=== PATIENT | female | born 1990 | race African-American/Black ===

== ENCOUNTER 2018-01-06 18:31 | Emergency (ER) | payer OTHER ==
[2018-01-06 20:53] LABS: KETONE, URINE AUTO RFX NEGATIVE (NEGATIVE); NITRITE, URINE AUTO RFX NEGATIVE (NEGATIVE); RBC, URINE AUTO RFX 4 /HPF (0-3); SPECIFIC GRAVITY UR AUTO RFX 1.014 (1.002-1.035); SQUAM EPITHELIAL CELL UR AURFX 3 /HPF (0-6); WBC, URINE AUTO RFX 9 /HPF (0-3)
[2018-01-06 21:02] LABS: LEUKOCYTE ESTERASE UR AUTO RFX 1+ (NEGATIVE)
[2018-01-06 21:10] LABS: BASO # 0.1 10^3/uL (0.0-0.2); BASO % 0.8 % (0.0-1.0); EOS # 0.1 10^3/uL (0.0-0.50); HEMATOCRIT 35.2 % (36.0-47.0); HEMOGLOBIN 11.2 g/dl (12.0-15.5); IMMATURE GRANULOCYTE % 0.3 % (0-3.0); LYMPH # 2.1 10^3/uL (1.5-6.5); LYMPH % 15.9 % (24.0-44.0); MEAN CORPUSCULAR HEMOGLOBIN 29.1 pg (27.0-33.0); MEAN CORPUSCULAR HGB CONC 31.8 g/dl (32.0-36.5); MEAN CORPUSCULAR VOLUME 91.4 fl (80.0-96.0); MONO # 1.1 10^3/uL (0.0-0.8); MONO % 8.8 % (0.0-5.0); NEUTROPHILS # 9.5 10^3/uL (1.8-7.7); NEUTROPHILS % 73.2 % (36.0-66.0); PLATELET COUNT, AUTOMATED 547 10^3/uL (150-450); RED BLOOD COUNT 3.85 10^6/uL (4.00-5.40); RED CELL DISTRIBUTION WIDTH 11.1 % (11.5-14.5)
[2018-01-06 21:33] LABS: ALBUMIN 3.1 GM/DL (3.2-5.2); ALKALINE PHOSPHATASE 89 U/L (45-117); ALT/SGPT 29 U/L (12-78); ANION GAP 6 MEQ/L (8-16); AST/SGOT 18 U/L (7-37); BILIRUBIN,DIRECT < 0.1 MG/DL (0.0-0.2); BILIRUBIN,TOTAL 0.3 MG/DL (0.2-1.0); BLOOD UREA NITROGEN 9 MG/DL (7-18); CALCIUM LEVEL 8.2 MG/DL (8.5-10.1); CARBON DIOXIDE LEVEL 28 MEQ/L (21-32); CHLORIDE LEVEL 105 MEQ/L (98-107); CREATININE FOR GFR 1.41 MG/DL (0.55-1.30); GLOMERULAR FILTRATION RATE 57.7 (>60); GLUCOSE, FASTING 78 MG/DL (70-100); LIPASE 63 U/L (73-393); POTASSIUM SERUM 3.9 MEQ/L (3.5-5.1); SODIUM LEVEL 139 MEQ/L (136-145); TOTAL PROTEIN 7.5 GM/DL (6.4-8.2)
[2018-01-06] MEDS ORDERED: ISOVUE-370 76% 100ML VIAL (Q9967) As Ordered (21:54)
[2018-01-06] MEDS: GI COCKTAIL 50ML BTL(HYOSCYAMINE/MAALOX/LIDOCAINE VISCOUS)(1:3:1) PO (22:12)
[2018-01-06] MEDS: PANTOPRAZOLE 40MG INJ (PROTONIX) (C9113) IV (22:13)
[2018-01-06] MEDS: MORPHINE 4 MG/ML 1ML VIAL/SYRINGE (J2270) IV (22:13)
[2018-01-06] MEDS: NS 1,000 ML IV (22:13)
[2018-01-06 22:19] LABS: CONTROL LINE UCG INT CTR LINE PRESENT; URINE PREG TEST NEGATIVE (NEGATIVE)
== END 2018-01-07 00:16 | disposition home or self-care (01) ==
LOC: M ED 01-07 00:16
DX: K29.00 Acute gastritis without bleeding (principal); R50.9 Fever, unspecified; E03.9 Hypothyroidism, unspecified; E05.00 Thyrotoxicosis with diffuse goiter without thyrotoxic crisis or storm; Z88.5 Allergy status to narcotic agent; Z88.6 Allergy status to analgesic agent; Z79.899 Other long term (current) drug therapy
CPT/HCPCS: C9113

== ENCOUNTER 2018-05-27 07:46 | Emergency (ER) | payer OTHER ==
[2018-05-27 08:48] LABS: AMORPHOUS SEDIMENT RFX SMALL (NEGATIVE); KETONE, URINE AUTO RFX NEGATIVE (NEGATIVE); LEUKOCYTE ESTERASE UR AUTO RFX NEGATIVE (NEGATIVE); NITRITE, URINE AUTO RFX NEGATIVE (NEGATIVE); RBC, URINE AUTO RFX 1 /HPF (0-3); SPECIFIC GRAVITY UR AUTO RFX 1.015 (1.002-1.035); SQUAM EPITHELIAL CELL UR AURFX 1 /HPF (0-6); WBC, URINE AUTO RFX 0 /HPF (0-3)
[2018-05-27 09:11] LABS: BASO # 0.1 10^3/uL (0.0-0.2); BASO % 0.5 % (0.0-1.0); EOS # 0.2 10^3/uL (0.0-0.50); EOS % 1.7 % (0.0-3.0); HEMATOCRIT 34.4 % (36.0-47.0); HEMOGLOBIN 10.9 g/dl (12.0-15.5); IMMATURE GRANULOCYTE % 0.4 % (0-3.0); LYMPH # 2.7 10^3/uL (1.5-6.5); LYMPH % 25.8 % (24.0-44.0); MEAN CORPUSCULAR HEMOGLOBIN 31.3 pg (27.0-33.0); MEAN CORPUSCULAR HGB CONC 31.7 g/dl (32.0-36.5); MEAN CORPUSCULAR VOLUME 98.9 fl (80.0-96.0); MONO # 1.1 10^3/uL (0.0-0.8); MONO % 10.2 % (0.0-5.0); NEUTROPHILS # 6.4 10^3/uL (1.8-7.7); NEUTROPHILS % 61.4 % (36.0-66.0); PLATELET COUNT, AUTOMATED 238 10^3/uL (150-450); RED BLOOD COUNT 3.48 10^6/uL (4.00-5.40); RED CELL DISTRIBUTION WIDTH 13.6 % (11.5-14.5); WHITE BLOOD COUNT 10.4 10^3/uL (4.0-10.0)
[2018-05-27 09:25] LABS: ANION GAP 8 MEQ/L (8-16); BLOOD UREA NITROGEN 24 MG/DL (7-18); CALCIUM LEVEL 8.2 MG/DL (8.5-10.1); CARBON DIOXIDE LEVEL 26 MEQ/L (21-32); CHLORIDE LEVEL 106 MEQ/L (98-107); CREATININE FOR GFR 1.78 MG/DL (0.55-1.30); GLOMERULAR FILTRATION RATE 44.1 (>60); GLUCOSE, FASTING 74 MG/DL (70-100); POTASSIUM SERUM 3.4 MEQ/L (3.5-5.1); SODIUM LEVEL 140 MEQ/L (136-145)
[2018-05-27 09:37] LABS: CONTROL LINE HCG INT CTR LINE PRESENT; HCG, SERUM QUALITATIVE NEGATIVE (NEGATIVE)
== END 2018-05-27 10:56 | disposition home or self-care (01) ==
LOC: M ED 07:46
DX: M54.5 Low back pain (principal); D86.89 Sarcoidosis of other sites; N18.3 Chronic kidney disease, stage 3 (moderate); Z79.899 Other long term (current) drug therapy; Z79.890 Hormone replacement therapy; Z88.5 Allergy status to narcotic agent; Z88.8 Allergy status to other drugs, medicaments and biological substances
CPT/HCPCS: 74176

== ENCOUNTER 2018-08-02 22:49 | Emergency (ER) | payer OTHER ==
[~2018-08-02] VITALS: Ht 160 cm; Wt 78.2 kg
[~2018-08-02 22:49] MED LIST: CARA1TAB6 PO; LEVO137T2 PO; LIDO5DIS41 TOP; OMEP40CA2 PO; PRED10TA2 PO; TUMS500C PO
[2018-08-02] MEDS ORDERED: KETOROLAC 30 MG/ML VIAL (J1885) IV ONE (23:15)
[2018-08-02] MEDS ORDERED: NS 1,000 ML IV ONE (23:15)
[2018-08-02] MEDS ORDERED: METOCLOPRAMIDE INJ 10MG/2ML VIAL (J2765) IV ONE (23:15)
[2018-08-02] MEDS ORDERED: diphenhydrAMINE INJ 50MG/ML VIAL (J1200) IV ONE (23:15)
[2018-08-03 00:07] LABS: CALCIUM LEVEL 8.2 MG/DL (8.5-10.1); CREATININE FOR GFR 1.51 MG/DL (0.55-1.30); GLOMERULAR FILTRATION RATE 52.9 (>60)
[2018-08-03 00:43] VITALS: BP 166/89
== END 2018-08-03 00:47 | disposition home or self-care (01) ==
LOC: M ED 22:49
DX: G43.909 Migraine, unspecified, not intractable, without status migrainosus (principal); D86.9 Sarcoidosis, unspecified; Z79.899 Other long term (current) drug therapy; Z88.5 Allergy status to narcotic agent; Z88.8 Allergy status to other drugs, medicaments and biological substances
CPT/HCPCS: 80048; 96374; 96375; 99284; J1200; J1885; J2765

== ENCOUNTER 2018-10-14 17:58 | Emergency (ER) | payer OTHER ==
[~2018-10-14] VITALS: Ht 160 cm; Wt 78.2 kg
[2018-10-14] MEDS ORDERED: ALPR0.25 (18:05)
[2018-10-14] MEDS ORDERED: FLUO10TA2 (18:05)
[2018-10-14] MEDS ORDERED: TRAM100T18 (18:05)
[2018-10-14] MEDS ORDERED: SULFAMETHOXAZOLE-TMP (18:05)
[2018-10-14] MEDS ORDERED: MYCO500T (18:06)
[2018-10-14] MEDS ORDERED: LISI10TA4 (18:06)
[2018-10-14] MEDS ORDERED: NS 500 ML IV ONE (19:45)
--- NOTE | 2018-10-14 20:57 | REP ---
Clinical: Acute right upper quadrant abdominal pain. Technique: Wilson scale ultrasound using curved array transducer. Findings: The liver and pancreas are normal in contour, size, and echogenicity without focal hepatic or pancreatic lesions identified. The gallbladder is normal without gallstones, wall thickening or pericholecystic fluid. No biliary ductal dilatation is appreciated, and the common bile duct measures 3.1 mm diameter. The right kidney is normal in reniform shape without hydronephrosis and measures 10.7 x 5.8 x 5.4 cm. No ascites. Visualized portions of the abdominal aorta normal. Impression: Normal right upper quadrant and gallbladder abdominal ultrasound. Electronically Signed by Merrill Grimes MD 10/14/2018 08:49 P
[2018-10-14 21:12] LABS: BASO # 0.1 10^3/uL (0.0-0.2); BASO % 0.7 % (0.0-1.0); EOS # 0.2 10^3/uL (0.0-0.50); HEMOGLOBIN 13.6 g/dl (12.0-15.5); LYMPH # 1.7 10^3/uL (1.5-6.5); LYMPH % 18.8 % (24.0-44.0); MEAN CORPUSCULAR VOLUME 88.3 fl (80.0-96.0); MONO # 1.1 10^3/uL (0.0-0.8); MONO % 11.9 % (0.0-5.0); NEUTROPHILS # 5.9 10^3/uL (1.8-7.7); NEUTROPHILS % 66.5 % (36.0-66.0); PLATELET COUNT, AUTOMATED 285 10^3/uL (150-450); RED BLOOD COUNT 4.53 10^6/uL (4.00-5.40); WHITE BLOOD COUNT 8.9 10^3/uL (4.0-10.0)
[2018-10-14 21:21] LABS: HCG, SERUM QUALITATIVE NEGATIVE (NEGATIVE)
[2018-10-14 21:39] LABS: BLOOD UREA NITROGEN 16 MG/DL (7-18); CALCIUM LEVEL 8.8 MG/DL (8.5-10.1); CARBON DIOXIDE LEVEL 27 MEQ/L (21-32); CHLORIDE LEVEL 102 MEQ/L (98-107); CREATININE FOR GFR 1.63 MG/DL (0.55-1.30); GLOMERULAR FILTRATION RATE 48.5 (>60); GLUCOSE, FASTING 57 MG/DL (70-100); POTASSIUM SERUM 3.6 MEQ/L (3.5-5.1); SODIUM LEVEL 139 MEQ/L (136-145)
[2018-10-14 21:40] LABS: ALBUMIN 3.7 GM/DL (3.2-5.2); ALT/SGPT 31 U/L (12-78); AMYLASE 110 U/L (25-115); BILIRUBIN,DIRECT 0.1 MG/DL (0.0-0.2); BILIRUBIN,TOTAL 0.6 MG/DL (0.2-1.0); LIPASE 94 U/L (73-393)
[2018-10-14] MEDS ORDERED: KETOROLAC 30 MG/ML VIAL (J1885) IV ONE (21:45)
[2018-10-14] MEDS: GASTROGRAFIN SOLUTION 30ML PO SCH ×2 (22:50→23:15)
--- NOTE | 2018-10-15 01:45 | REPVR ---
EXAM: CT Abdomen and Pelvis Without Contrast EXAM DATE/TIME: 10/14/2018 10:04 PM CLINICAL HISTORY: 28 years old, female; Abdominal pain; Generalized TECHNIQUE: Imaging protocol: Axial computed tomography images of the abdomen and pelvis without contrast. Coronal and sagittal reformatted images were created and reviewed. Radiation optimization: All CT scans at this facility use at least one of these dose optimization techniques: automated exposure control; mA and/or kV adjustment per patient size (includes targeted exams where dose is matched to clinical indication); or iterative reconstruction. COMPARISON: GALLBLADDER US 10/14/2018 8:30:[address] ABD PELVIS W/O CONTRAST 05/27/2018 8:59 AM FINDINGS: Lower thorax: Unremarkable. ABDOMEN: Liver: Unremarkable. No liver lesion is seen. The contour of the liver is smooth. No hepatomegaly is noted. Gallbladder and bile ducts: No calcified gallstones are seen. No gallbladder wall thickening, pericholecystic fluid, or pericholecystic inflammatory changes are identified. No dilation of the intrahepatic or extrahepatic bile ducts is noted. Pancreas: Unremarkable. No ductal dilation. Spleen: Unremarkable. No splenomegaly is noted. Incidental note is made of a small accessory spleen. Adrenals: Normal. No mass. Kidneys and ureters: The kidneys are unremarkable. No renal lesion is identified. No calculi are seen in the kidneys or ureters. There is no hydronephrosis or hydroureter. Stomach and bowel: There is no evidence for a bowel obstruction, diverticulosis, diverticulitis, colitis, pneumatosis intestinalis, intussusception, volvulus, or perforated viscus. Appendix: Normal. No evidence for appendicitis. PELVIS: Bladder: The partially distended urinary bladder is unremarkable. No stones or masses are seen in the bladder. Reproductive: The uterus is anterverted and unremarkable. The ovaries are unremarkable. ABDOMEN and PELVIS: Intraperitoneal space: Normal. No free air. No fluid collection. Bones/joints: There are dystrophic calcifications at the insertion of the left iliocostalis lumborum muscle onto the left iliac crest, which are similar in appearance compared to the prior CT scan on 05/27/2018. The bones are intact. There is no suspicious osteolytic or osteoblastic lesion. Soft tissues: Unremarkable. Incidental note is made of umbilical piercings. Vasculature: No abdominal aortic aneurysm. Lymph nodes: Normal. No enlarged lymph nodes. IMPRESSION: 1. No acute findings in the abdomen or pelvis. 2. No stones in the kidneys, ureters, or urinary bladder. No hydronephrosis or hydroureter. Electronically signed by: Mahin Mackay On 10/15/2018 01:45:23 AM
[2018-10-15] MEDS ORDERED: ZOFR4TAB16 PO (02:00)
[2018-10-15 02:03] VITALS: BP 116/56
[2018-10-15 02:29] LABS: APPEARANCE, URINE CLOUDY (CLEAR); BACTERIA, URINE AUTO 1+ (NEGATIVE); BILIRUBIN, URINE AUTO NEGATIVE (NEGATIVE); BLOOD, URINE BLOOD 1+ (NEGATIVE); COLOR, URINE YELLOW (YELLOW); GLUCOSE, URINE (UA) AUTO NEGATIVE (NEGATIVE); KETONE, URINE AUTO 1+ mg/dL (NEGATIVE); LEUKOCYTE ESTERASE, URINE AUTO NEGATIVE (NEGATIVE); MUCUS, URINE SMALL (NEGATIVE); NITRITE, URINE AUTO NEGATIVE (NEGATIVE); PROTEIN, URINE AUTO 1+ mg/dL (NEGATIVE); RBC, URINE AUTO 10 /HPF (0-3); SPECIFIC GRAVITY URINE AUTO 1.024 (1.002-1.035); SQUAMOUS EPITHELIAL CELL UR AU 12 /HPF (0-6); WBC, URINE AUTO 10 /HPF (0-3)
== END 2018-10-15 02:07 | disposition home or self-care (01) ==
LOC: M ED 17:58
DX: R11.2 Nausea with vomiting, unspecified (principal); R19.7 Diarrhea, unspecified; D86.9 Sarcoidosis, unspecified; N17.8 Other acute kidney failure; I10 Essential (primary) hypertension; E03.9 Hypothyroidism, unspecified; Z88.5 Allergy status to narcotic agent; Z88.6 Allergy status to analgesic agent; Z79.899 Other long term (current) drug therapy; Z79.2 Long term (current) use of antibiotics
CPT/HCPCS: 74176; 76705; 80048; 80076; 81001; 82150; 83690; 84703; 85025; 96374; 99284; J1885; Q9963

== ENCOUNTER → 2018-10-25 | Outpatient (CLI) | payer OTHER ==
[~2018-10-25] MED LIST changes: +ALPR0.25; +FLUO10TA2; +LISI10TA4; +MYCO500T; +PROHANCE 279.3MG/ML 15ML VIAL (A9576) As Ordered ONE; +SULFAMETHOXAZOLE-TMP; +TRAM100T18; +ZOFR4TAB16 PO
--- NOTE | 2018-10-28 08:05 | REP ---
MRI brain and posterior fossa without and with contrast: History: Sudden onset right sided hearing loss. Question neurosarcoidosis. Comparison study: No comparison brain imaging. Technique: Axial and sagittal imaging planes are utilized for T1 and T2-weighted scans. Sequences include spin-echo, fast spin echo, FLAIR, and diffusion weighted sequences. The gadolinium enhancement dose is 7 ml of intravenous ProHance. MRI findings: No bony calvarial lesion is seen. Craniocervical junction and upper cervical cord are normal in appearance. There is no MR evidence of significant paranasal sinus disease. No intraorbital abnormality is seen. The lateral, third, and fourth ventricles are normal in size and position. Wilson-white differentiation pattern is intact above and below the tentorium. There is no evidence of intracranial hemorrhage. No mass, infarction, extra-axial fluid collection or midline shift is seen. No abnormal white matter lesion is seen. The internal auditory canals are normal and symmetric. Seventh and eighth nerves within the are normal in appearance. Vestibular and cochlear apparatus appear normal. There is no evidence of mastoiditis or middle ear fluid by MRI. There is no abnormal gadolinium enhancement intracranially. Impression: Negative the brain and posterior fossa MRI study without and with IV gadolinium. Electronically Signed by Toni Deluna MD 10/28/2018 07:56 A
== END ==
LOC: M RAD 14:22
PROVIDERS: ATTEND Physician Assistant
DX: H91.23 Sudden idiopathic hearing loss, bilateral (principal); H93.11 Tinnitus, right ear
CPT/HCPCS: 70553; A9576

== ENCOUNTER 2018-11-13 11:04 | Emergency (ER) | payer OTHER ==
[~2018-11-13] VITALS: Ht 160 cm; Wt 75.1 kg
[~2018-11-13 11:04] MED LIST changes: -PROHANCE 279.3MG/ML 15ML VIAL (A9576) As Ordered ONE
[2018-11-13] MEDS ORDERED: CELL500T PO (11:21)
[2018-11-13] MEDS ORDERED: NS 1,000 ML IV ONE (12:00)
[2018-11-13 12:27] LABS: BASO # 0.1 10^3/uL (0.0-0.2); BASO % 0.7 % (0.0-1.0); EOS # 0.4 10^3/uL (0.0-0.50); EOS % 3.6 % (0.0-3.0); HEMATOCRIT 38.6 % (36.0-47.0); HEMOGLOBIN 12.8 g/dl (12.0-15.5); LYMPH # 1.6 10^3/uL (1.5-6.5); LYMPH % 16.3 % (24.0-44.0); MEAN CORPUSCULAR HEMOGLOBIN 30.2 pg (27.0-33.0); MEAN CORPUSCULAR HGB CONC 33.2 g/dl (32.0-36.5); MONO # 0.6 10^3/uL (0.0-0.8); MONO % 6.2 % (0.0-5.0); NEUTROPHILS # 7.3 10^3/uL (1.8-7.7); PLATELET COUNT, AUTOMATED 366 10^3/uL (150-450); RED BLOOD COUNT 4.24 10^6/uL (4.00-5.40)
[2018-11-13 12:52] LABS: ALBUMIN 3.8 GM/DL (3.2-5.2); BILIRUBIN,DIRECT 0.2 MG/DL (0.0-0.2); BILIRUBIN,TOTAL 0.8 MG/DL (0.2-1.0); CALCIUM LEVEL 8.8 MG/DL (8.5-10.1); CREATININE FOR GFR 1.63 MG/DL (0.55-1.30); GLOMERULAR FILTRATION RATE 48.5 (>60); POTASSIUM SERUM 4.1 MEQ/L (3.5-5.1); TOTAL PROTEIN 7.6 GM/DL (6.4-8.2)
[2018-11-13] MEDS ORDERED: METOCLOPRAMIDE INJ 10MG/2ML VIAL (J2765) IV ONE (13:00)
[2018-11-13 14:00] VITALS: BP 133/63
== END 2018-11-13 14:12 | disposition home or self-care (01) ==
LOC: M ED 11:04
DX: G43.909 Migraine, unspecified, not intractable, without status migrainosus (principal); N18.3 Chronic kidney disease, stage 3 (moderate); E03.9 Hypothyroidism, unspecified; F41.9 Anxiety disorder, unspecified; F33.9 Major depressive disorder, recurrent, unspecified; Z88.8 Allergy status to other drugs, medicaments and biological substances; Z88.5 Allergy status to narcotic agent; Z79.890 Hormone replacement therapy; Z79.899 Other long term (current) drug therapy
CPT/HCPCS: 80048; 80076; 81001; 81025; 82150; 83690; 85025; 96374; 99284; J2765

== ENCOUNTER 2018-12-23 11:50 | Day surgery (SDC) | payer OTHER ==
[~2018-12-23] VITALS: Ht 160 cm; Wt 74.4 kg
[~2018-12-23 11:50] MED LIST changes: +CELL500T PO; -FLUO10TA2; +FLUO10TA2 PO; +NS 1,000 ML IV ONE; +SYNT150T PO; -TRAM100T18; +TRAM100T18 PO
[2018-12-23] MEDS ORDERED: fentaNYL 100 MCG/2 ML INJECTION (J3010) As Ordered ONE (12:30)
[2018-12-23] MEDS ORDERED: LIDOCAINE 2% INJ 100 MG/5 ML SDV (FOR ANES.) As Ordered ONE (12:30)
[2018-12-23] MEDS ORDERED: PROPOFOL 200 MG/20 ML VIAL As Ordered ONE ×2 (12:30→13:05)
--- NOTE | 2018-12-23 13:08 | ROOR ---
Patient Name: Piper Benavidez Procedure Date: 12/23/2018 12:55 PM Date of : 1990 Age: 28 Room: [facility] Gender: Female Note Status: Finalized Procedure: Upper Endoscopy + Biopsies Indications: Generalized abdominal pain, Nausea with vomiting Providers: Lul Angeles MD Referring MD: RADHA GARCIA MD Requesting Provider: Medicines: Monitored Anesthesia Care Complications: No immediate complications. Procedure: Pre-Anesthesia Assessment: - The heart rate, respiratory rate, oxygen saturations, blood pressure, adequacy of pulmonary ventilation, and response to care were monitored throughout the procedure. The Endoscope was introduced through the mouth, and advanced to the second part of duodenum. The upper GI endoscopy was accomplished without difficulty. The patient tolerated the procedure well. Findings: The Z-line was regular and was found 40 cm from the incisors. No other significant abnormalities were identified in a careful examination of the stomach. The exam of the duodenum was otherwise normal. Biopsies were taken with a cold forceps in the gastric antrum for Helicobacter pylori testing. The exam was otherwise without abnormality. Impression: - Z-line regular, 40 cm from the incisors. - The examination was otherwise normal. - Biopsies were taken with a cold forceps for Helicobacter pylori testing. - The examination was otherwise normal. Recommendation: - Patient has a contact number available for emergencies. The signs and symptoms of potential delayed complications were discussed with the patient. Return to normal activities tomorrow. Written discharge instructions were provided to the patient. - High fiber diet. - Discharge patient to home. - Continue present medications. - Await pathology results. - Telephone GI clinic for pathology results in 1 week. - The findings and recommendations were discussed with the patient's family. Lul Angeles MD Lul Angeles MD 12/23/2018 1:08:10 PM Electronically signed by Lul Angeles MD Number of Addenda: 0 Note Initiated On: 12/23/2018 12:55 PM Estimated Blood Loss: Estimated blood loss: none.
[2018-12-23 13:35] VITALS: BP 120/71
== END 2018-12-23 13:38 | disposition home or self-care (01) ==
LOC: M OPP 11:50
PROVIDERS: ATTEND Internal Medicine Gastroenterology
DX: R10.84 Generalized abdominal pain (principal); R11.2 Nausea with vomiting, unspecified
CPT/HCPCS: 43239; 88305; J3010

== ENCOUNTER → 2019-02-21 | Outpatient (CLI) | payer OTHER ==
[~2019-02-21] MED LIST changes: +LEVO2TA PO; +LIDOCAINE 1% MDV 20ML VIAL As Ordered ONE; -NS 1,000 ML IV ONE; +PROZ10CA7 PO
[2019-02-21 14:47] VITALS: BP 121/80
--- NOTE | 2019-02-21 16:05 | REP ---
Ultrasound-guided left breast biopsy. The procedure was performed by NELY Cuellar, under the direct supervision of Dr. Deluna. The patient has a history of a 2.3 x 1.4 x 0.6 cm left breast mass on a previous ultrasound dated 02/10/2019. The risks and benefits of the procedure were explained to the patient and informed consent was obtained both verbally and written. Directly prior to the start of the procedure, a formal timeout was completed in the procedure room. The left breast mass was localized using ultrasound guidance. The skin was prepped and draped in a sterile fashion. 10 ml of 1% lidocaine was used as a local anesthetic. Using ultrasound guidance a 17/18 gauge coaxial needle biopsy system was inserted and advanced to the mass, and 4 core biopsy samples were obtained. The patient tolerated the procedure well and there were no immediate complications. After the appropriate monitored convalescence the patient was discharged from the department. Reviewed by NELY Anderson 02/21/2019 03:53 P Electronically Signed by Toni Deluna MD 02/21/2019 03:56 P
== END ==
LOC: M IRPRO 12:25
DX: D48.62 Neoplasm of uncertain behavior of left breast (principal)

== ENCOUNTER → 2019-07-24 | Outpatient (CLI) | payer OTHER ==
[~2019-07-24] MED LIST changes: -LIDOCAINE 1% MDV 20ML VIAL As Ordered ONE; -OMEP40CA2 PO; +OMEP40CA97 PO
--- NOTE | 2019-07-24 11:16 | REP ---
DIGITAL DIAGNOSTIC UNILATERAL LEFT BREAST MAMMOGRAPHY WITH CAD, AND FOCUSED LEFT BREAST SONOGRAPHY. HISTORY: New lump palpable in the left breast since mid May. Some tenderness and pain. The patient states this is different than the palpable lump which was biopsied under ultrasound guidance in March 11, 2019 showing benign fibroadenoma histologically. MAMMOGRAPHIC FINDINGS: Implant displaced and implant included views of the left breast are obtained with a skin marker affixed to the skin at the site of palpable lump. These are augmented by magnified focal spot compression views in the craniocaudal, MLO, and true mediolateral projections. These demonstrate the previously noted nodular density in the inferior left breast approximately 6-7 -o'clock position. The skin marker is not clearly related to this nodule. No other breast mass is appreciated. No worrisome skin change is seen. No other mammographic abnormality. The nodule at the approximately 6-o'clock position is unchanged. SONOGRAPHIC FINDINGS: The left breast is scanned through the inferior and medial quadrant. At 6-o'clock position, the previously noted hypoechoic fibroadenoma is seen currently measuring 1.4 x 1.4 x 0.4 cm. It appears smaller sonographically. At the site of the palpable lump today at approximately 8-o'clock position, there is a small lens-shaped fluid collection adjacent to the margin of the augmentation implant. This measures 1.5 x 1.4 x 0.2 cm in greatest diameter and is most compatible with a small fluid collection versus artifact. The implant margins appear smooth here and elsewhere. This finding is of uncertain significance. IMPRESSION: BIRADS 2: BI-RADS/ACR category 2 mammogram. Benign Findings. BIRADS category 2 benign findings. 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 At the site of the new palpable lump, sonography shows a very small fluid collection of doubtful significance adjacent to the implant margin. Clinical followup is advised. This mammogram was interpreted with the aid of an FDA-approved computer-aided detection system. This patient's estimated Tyrer-Cuzick lifetime risk assessment for the breast cancer is 14.7 %. The patient letter being requested is M2 . Electronically Signed by Toni Deluna MD 07/24/2019 02:05 P
== END ==
LOC: M RAD 08:57
PROVIDERS: ATTEND Nurse Practitioner Family
DX: N63.25 Unspecified lump in the left breast, overlapping quadrants (principal)

== ENCOUNTER 2019-09-23 15:23 | Emergency (ER) | payer OTHER ==
[~2019-09-23] VITALS: Ht 160 cm; Wt 73.5 kg
[2019-09-23 16:40] LABS: BASO # 0.1 10^3/uL (0.0-0.2); BASO % 0.7 % (0.0-1.0); EOS # 0.1 10^3/uL (0.0-0.5); EOS % 0.8 % (0.0-3.0); HEMATOCRIT 40.1 % (36.0-47.0); HEMOGLOBIN 12.7 g/dl (12.0-15.5); LYMPH # 1.9 10^3/uL (1.5-5.0); LYMPH % 15.5 % (24.0-44.0); MEAN CORPUSCULAR HGB CONC 31.7 g/dl (32.0-36.5); MEAN CORPUSCULAR VOLUME 94.8 fl (80.0-96.0); MONO # 0.7 10^3/uL (0.0-0.8); MONO % 5.6 % (0.0-5.0); NEUTROPHILS # 9.5 10^3/uL (1.5-8.5); NEUTROPHILS % 77.1 % (36.0-66.0); PLATELET COUNT, AUTOMATED 336 10^3/uL (150-450); RED BLOOD COUNT 4.23 10^6/uL (4.00-5.40); WHITE BLOOD COUNT 12.3 10^3/uL (4.0-10.0)
[2019-09-23 17:04] LABS: HCG, SERUM QUALITATIVE NEGATIVE (NEGATIVE)
[2019-09-23 17:06] LABS: ALBUMIN 3.3 GM/DL (3.2-5.2); ALT/SGPT 22 U/L (12-78); BILIRUBIN,DIRECT < 0.1 MG/DL (0.0-0.2); BILIRUBIN,TOTAL 0.2 MG/DL (0.2-1.0); BLOOD UREA NITROGEN 15 MG/DL (7-18); CALCIUM LEVEL 8.8 MG/DL (8.5-10.1); CARBON DIOXIDE LEVEL 26 MEQ/L (21-32); CHLORIDE LEVEL 108 MEQ/L (98-107); CREATININE FOR GFR 1.73 MG/DL (0.55-1.30); GLOMERULAR FILTRATION RATE 44.9 (>60); GLUCOSE, FASTING 72 MG/DL (70-100); LIPASE 277 U/L (73-393); POTASSIUM SERUM 4.1 MEQ/L (3.5-5.1); SODIUM LEVEL 140 MEQ/L (136-145); TOTAL PROTEIN 6.9 GM/DL (6.4-8.2)
[2019-09-23] MEDS ORDERED: ONDANSETRON 4 MG ORAL DISINTEGRATING TAB (Q0162 PER 1MG) PO ONE ×2 (18:30→23:00)
[2019-09-23] MEDS ORDERED: DICYCLOMINE 10 MG CAP PO ONE (18:30)
[2019-09-23] MEDS ORDERED: NS 1,000 ML IV ONE (20:00)
[2019-09-23] MEDS: GASTROGRAFIN SOLUTION 30ML PO SCH ×2 (20:52→21:22)
--- NOTE | 2019-09-23 21:08 | REP ---
ABDOMINAL SERIES: Supine and erect views of the abdomen demonstrate no free air and no evidence of small bowel obstruction. No dilated bowel loops are seen. There is no fecal impaction. There appear to be a couple of tiny phleboliths in the right lower pelvis. An accompanying view of the chest demonstrates no acute infiltrate. Heart is normal in size and the mediastinal silhouette is unremarkable. IMPRESSION: Negative abdominal series. Electronically Signed by Phillip Wilson MD 09/24/2019 03:53 P
--- NOTE | 2019-09-23 22:38 | REPVR ---
PROCEDURE INFORMATION: Exam: CT Abdomen And Pelvis Without Contrast Exam date and time: 09/23/2019 10:10 PM Age: 29 years old Clinical indication: Abdominal pain; Epigastric; Additional info: Epigastric pain, left side abd pain, nv TECHNIQUE: Imaging protocol: Computed tomography of the abdomen and pelvis without contrast. Radiation optimization: All CT scans at this facility use at least one of these dose optimization techniques: automated exposure control; mA and/or kV adjustment per patient size (includes targeted exams where dose is matched to clinical indication); or iterative reconstruction. Other contrast: Oral, GASTROGRAPHIN ; COMPARISON: CT ABD/PEL W/PO CONTRAST ONLY 10/15/2018 12:05 AM FINDINGS: Liver: Normal. No mass. Gallbladder and bile ducts: Normal. No calcified stones. No ductal dilation. Pancreas: Normal. No ductal dilation. Spleen: Normal. No splenomegaly. Adrenals: Normal. No mass. Kidneys and ureters: Normal. No hydronephrosis. Stomach and bowel: Unremarkable. No obstruction. No mucosal thickening. Appendix: A normal appendix is seen. Intraperitoneal space: Unremarkable. No free air. No significant fluid collection. Vasculature: Unremarkable. No abdominal aortic aneurysm. Lymph nodes: Unremarkable. No enlarged lymph nodes. Bladder: Unremarkable as visualized. Reproductive: Unremarkable as visualized. Bones/joints: Unremarkable. No acute fracture. Soft tissues: Bilateral breast implants. IMPRESSION: Negative CT abdomen/pelvis with little change from 10/15/2018. Electronically signed by: Marco Cortes On 09/23/2019 22:38:04 PM
[2019-09-23] MEDS ORDERED: MAGNESIUM CITRATE 300 ML BTL PO ONE (23:00)
[2019-09-23] MEDS ORDERED: LACT10SO29 PO (23:03)
[2019-09-23] MEDS ORDERED: SIME180C PO (23:03)
[2019-09-23] MEDS ORDERED: ONDA4TAB6 PO (23:03)
[2019-09-23 23:09] VITALS: BP 129/75
== END 2019-09-23 23:16 | disposition home or self-care (01) ==
LOC: M ED 15:23
DX: R10.84 Generalized abdominal pain (principal); E03.9 Hypothyroidism, unspecified; N18.3 Chronic kidney disease, stage 3 (moderate); F41.9 Anxiety disorder, unspecified; F33.9 Major depressive disorder, recurrent, unspecified; Z88.8 Allergy status to other drugs, medicaments and biological substances; Z88.5 Allergy status to narcotic agent; Z79.890 Hormone replacement therapy; Z79.899 Other long term (current) drug therapy
CPT/HCPCS: 74021; 74176; 80048; 80076; 81001; 83690; 84703; 85025; 96360; 99284; Q0162; Q9963

== ENCOUNTER → 2020-02-05 | Outpatient (CLI) | payer OTHER ==
[~2020-02-05] MED LIST changes: +LACT20EL PO; +ONDA4TAB6 PO; +SIME180C PO
--- NOTE | 2020-02-05 23:17 | REP ---
DIAGNOSTIC MAMMOGRAM LEFT BREAST WITH LEFT BREAST ULTRASOUND: HISTORY: Palpable lump 6 o'clock left breast. Family history of breast cancer at age 50 in maternal aunt. [facility] lifetime risk of breast cancer 14.7%. COMPARISON: Mammogram 07/24/2019 and ultrasound 07/24/2019 and 02/10/2019. MLO and CC views of left breast performed. 3D tomosynthesis images are performed. Both routine and implant displaced views are performed. There is a left breast implant in place. It is grossly intact. Mild to moderate scattered fibroglandular densities are seen diffusely throughout the left breast. Volpara breast density is B. Once again, at the 6-o'clock position is a lobulated nodule as seen on prior mammograms, consistent with the previously biopsy proven fibroadenoma. Margins are smooth. No new mass is seen in the left breast, and there are no suspicious clusters of microcalcifications. Real-time sonographic evaluation of 6 o'clock palpable lump left breast corresponds to the site of the known lobulated fibroadenoma. Three separate lobulated soft tissue nodules are seen, as noted on the ultrasound of 02/10/2019. Comparing to that prior study, it appears to be in slightly increased size of the lobulated fibroadenoma. The largest oval solid component of the fibroadenoma measures 1.7 x 0.4 x 1.7 cm. This previously measured 1.3 x 0.4 x 1.4 cm. IMPRESSION: ACR 2, benign findings. Known lobulated fibroadenoma again seen 6 o'clock left breast corresponding to the palpable lump. It has increased in size 3 mm since July. BIRADS 2: BI-RADS/ACR category 2 mammogram. Benign Findings. This mammogram was interpreted with the aid of an FDA-approved computer-aided detection system. The patient states she/he had a clinical breast exam in 01/2020. The patient letter being requested is M2.
== END ==
LOC: M WHC 13:05
PROVIDERS: ATTEND Nurse Practitioner Family
DX: N63.0 Unspecified lump in unspecified breast (principal)
CPT/HCPCS: 76642; 77065; G0279

== ENCOUNTER → 2020-06-19 | Outpatient (CLI) | payer OTHER ==
[~2020-06-19] MED LIST changes: +ARMO90TA; +CYCL-707; +FAMO1TAB11
== END ==
LOC: M LABSMTC 11:11
PROVIDERS: ATTEND Anesthesiology
DX: Z01.812 Encounter for preprocedural laboratory examination (principal); Z20.828 Contact with and (suspected) exposure to other viral communicable diseases

== ENCOUNTER 2020-06-24 08:29 | Day surgery (SDC) | payer OTHER ==
[~2020-06-24] VITALS: Ht 160 cm; Wt 61.0 kg
[~2020-06-24 08:29] MED LIST changes: +LR 1,000 ML IV ONE; +ceFAZolin SOD 1 GM in D5W MINI-BAG PLUS 50 ML IV ONE
[2020-06-24] MEDS ORDERED: BUPIVACAINE LIPOSOME/PF 1.3% 20ML VIAL (13.3MG/ML)(EXPAREL)(C9290 PER1MG) As Ordered ONE (08:56)
[2020-06-24] MEDS ORDERED: BACITRACIN PWD 50,000 UNITS VIAL As Ordered ONE (08:56)
[2020-06-24] MEDS ORDERED: ONDANSETRON 4MG/2ML VIAL As Ordered ONE (09:24)
[2020-06-24] MEDS ORDERED: dexameTHASONE 4 MG/ML 1ML VIAL (J1100 PER 1MG) As Ordered ONE (09:24)
[2020-06-24] MEDS ORDERED: propofoL 200 MG/20 ML VIAL As Ordered ONE ×2 (09:24→13:29)
[2020-06-24] MEDS ORDERED: ROCURONIUM BROMIDE 50 MG/5 ML VIAL As Ordered ONE ×2 (09:24→09:25)
[2020-06-24] MEDS ORDERED: LIDOCAINE 2% 100MG/5ML SDV (FOR ANES.) As Ordered ONE (09:24)
[2020-06-24] MEDS ORDERED: MIDAZOLAM INJ 2MG/2ML VIAL (J2250 PER 1MG) As Ordered ONE (09:25)
[2020-06-24] MEDS ORDERED: fentaNYL 250 MCG/5 ML INJECTION (J3010) As Ordered ONE (09:25)
[2020-06-24] MEDS ORDERED: SCOPOLAMINE 1MG TRANSDERMAL PATCH TOP ONE (10:00)
[2020-06-24] MEDS ORDERED: SCOPOLAMINE 1MG TRANSDERMAL PATCH As Ordered ONE (10:05)
[2020-06-24] MEDS ORDERED: LACRILUBE (AKWA TEARS) OPHTH OINT 3.5 GM As Ordered ONE (10:13)
[2020-06-24] MEDS ORDERED: HYDROmorphone HCL 2 MG/ML 1ML VIAL (J1170) As Ordered ONE (11:16)
[2020-06-24] MEDS ORDERED: SUGAMMADEX SODIUM 500 MG/5 ML VIAL (BRIDION) As Ordered ONE (11:30)
[2020-06-24] MEDS ORDERED: ceFAZolin 1GM VIAL (J0690 PER 500MG) As Ordered ONE (14:03)
[2020-06-24] MEDS: LR 1,000 ML IV SCH (14:54)
--- NOTE | 2020-06-24 14:54 | POST-OPPD ---
Postoperative Procedure Note Date Of Procedure: Jun 24, 2020 PREOPERATIVE DIAGNOSIS: Bilateral breast implants. Painful breasts. POSTOPERATIVE DIAGNOSIS: same FINDINGS: Bilateral breast implants. Left implant rupture. Allergan 450cc gel x2 PROCEDURE: Bilateral breast implant removal, open capsulectomy. Bilateral breast mound reconstruction and mastopexy. SURGEON: Dr Rolon TRAIN CREW MEMBER: Dr Engle ANESTHESIA: General SPECIMENS: Right and left (ruptured) implants. Right and left capsules. ESTIMATED BLOOD LOSS: 100 cc REPLACED: none DRAINS: 10 mm RHONA drains x 2 COMPLICATIONS: none POSTOPERATIVE CONDITION: stable Disct: [id number] RAY ROLON DO Jun 24, 2020 14:54
[2020-06-24] MEDS ORDERED: MORPHINE 4 MG/ML 1ML VIAL/SYRINGE (J2270) IV PRN (15:00)
[2020-06-24] MEDS ORDERED: ceFAZolin SOD 1 GM in D5W MINI-BAG PLUS 50 ML IV SCH (15:00)
[2020-06-24] MEDS ORDERED: ACETAMINOPH W/CODEINE #3 TAB UD PO PRN (15:30)
[2020-06-24] MEDS ORDERED: ONDANSETRON 4MG/2ML VIAL IV PRN (15:30)
[2020-06-24] MEDS ORDERED: HYDROMORPHONE HCL 0.5 MG/ 0.5 ML SYRINGE (J1170 PER 1) IV PRN (15:30)
[2020-06-24] MEDS ORDERED: fentaNYL 100 MCG/2 ML INJECTION (J3010) IV PRN (15:30)
[2020-06-24] MEDS ORDERED: LR 1,000 ML IV SCH (15:30)
[2020-06-24] MEDS ORDERED: METOCLOPRAMIDE INJ 10MG/2ML VIAL (J2765 PER 1) IV PRN (15:30)
[2020-06-24 16:30] VITALS: BP 128/76
[2020-06-24 17:04] VITALS: BP 120/73
[2020-06-24] MEDS: ceFAZolin SOD 1 GM in D5W MINI-BAG PLUS 50 ML IV SCH (17:04)
[2020-06-24] MEDS: traMADol 50 MG TAB PO PRN (17:04)
[2020-06-24 17:59] VITALS: BP 118/74
[2020-06-24 18:55] VITALS: BP 122/78
[2020-06-24 20:00] VITALS: BP 122/76
--- NOTE | 2020-06-24 20:13 | RO ---
OPERATIVE NOTE DATE OF OPERATION: 06/24/2020 PREOPERATIVE DIAGNOSIS: Bilateral breast implants, painful breasts. POSTOPERATIVE DIAGNOSIS: Bilateral breast implants, painful breasts. FINDINGS: Bilateral breast implants, left implant rupture, Allergan 450 mL gel implants found bilaterally. PROCEDURE: Bilateral breast implant removal, open capsulectomy, bilateral breast mound reconstruction and a mastopexy. ATTENDING SURGEON: Dr. Maricarmen Rueda MANAGER OF COMPENSATION: Dr. Engle ANESTHESIA: General. SPECIMEN: Left and right, left is ruptured, right is intact, implants. Right and left capsules. ESTIMATED BLOOD LOSS: 100 mL REPLACEMENT: No replacement. DRAINS: Two 10 mm Deandre-Hernandez drains placed. COMPLICATIONS: None. PROCEDURE: This is a 29-year-old female who was seen complaining of discomfort with her implants since she had them placed. The patient had her implants for three years so she would like to have them removed. We discussed the reconstructive options with her after the implants are going to be removed. The patient is understanding that she is going to have a lot smaller breasts and also visible scars on the breasts after the reconstruction of the mound and also the left is going to be done. She agreeing to proceed. On the day of surgery, informed consent was confirmed and the patient was marked in the upright position. Her right breast has slightly more ptosis on the right side, it is 1/2 cm different and appears to look slightly moya on the right side versus the left side. We are marking her new area for the new nipple-areolar complex after the extraction is going to be at 20 cm from the sternal notch. Also, the patient has body piercings which were noted. As of concern there is a mid-chest body piercing. The hogshead stock clerk was removed by the patient and we also identified it. It has a subcuticular plate that has been embedded and it is in stable condition right now. So she is marked preoperatively in upright position and she was brought into the operating room, placed in supine position. Preoperative antibiotics are given, sequentials placed on the lower calves. General anesthesia is induced. She is prepped and draped in the usual sterile fashion. The piercing on the chest wall was covered with Tegaderm and then we started our procedure on the right side. We started by making the midline incision on the vertical scar using a knife and also we scored her and measured her nipple-areolar complex. This was 42 mm diameter so that area was scored and her new nipple-areolar complex positioning, also that area was scored with a knife. The incision was carried out on the vertical part and then we dissected using electrocautery until the capsule identified. Then capsule by itself is thin and appears to be healthy. We entered the capsule. The implant was identified and removed. It was completely intact. It is Allergan 450 mL gel implant and sent to pathology. We examined the pocket. The capsule is pliable and soft. We then moved to the capsulectomy. There is a piece of capsule that is adjacent to the rib cage which was intimately integrated into it and we left it in place. The pectoralis muscle was identified. It is partially and it was now reconnected and resutured together and reconstructed to its original state. The skin and breast tissue were undermined and from the pectoralis muscle. At this point the area for the nipple-areolar complex is de-epithelialized and we measured the skin inferiorly how much needs to be reduced in order to create a new breast mount. It measures 7 cm which was de-epithelialized, and that tissue with subcu tissue, the breast tissue and the skin which was de-epithelialized were used as flaps to recreate the breast mound. 2-0 Vicryl sutures were used to help to maintain the mound and the vertical incision was then closed with interrupted 3-0 Monocryl sutures. Now it is going to be measured at 5 cm. It was reconnected to the inferior portion. The excess tissue inferiorly was measured and de-epithelialized and also used to augment medial and lateral portion of the breast. The nipple-areolar complex was introduced also a 10 mm Deandre-Hernandez drain through the horizontal incision and it was sutured in place. The nipple-areolar complex was sutured in place with 3-0 and 4-0 Monocryl sutures and 5-0 running stitch. The nipple-areolar complex was in good vascular congestion at all times. Then we turned our attention to the left side. Like I said, it was slightly smaller than the right. We started by finding the nipple-areolar complex at 42 mm in diameter and also where the nipple-areolar complex is going to be after the mastopexy. Those areas were scored. Then the inferior breast midline incision is carried out using a 10-blade and then we started dissecting using electrocautery until the capsule was identified. The capsule was carefully entered and then we encountered gel substance, confirming the implant is ruptured. The area was then placed a nylon suture through that opening to contain the gel and the approach for the excision of this implant was excise the capsule with the implant intact to alleviate the leakage of the silicone. My registered dental assistant rda was a great help in providing exposure so careful dissection was done to leave the capsule intact as much as possible so anterosuperior portion of the capsule was completely excised. However, the posterior portion of the capsule was intimately integrated into the ribs. The capsule was soft and pliable so we were able to do most of the dissection. The pectoralis muscle was from the capsule as well and at that point we removed the implant which was definitely ruptured and it is an Allergan 450 mL gel so that was sent to pathology. The remaining capsule was also resected. A small piece of capsule that was completely integrated into the rib cage was left in place. The wound is irrigated with a copious amount of bacitracin irrigation solution. We changed our gloves. There is no residual silicone that is left in the cavity and then at that point, we started the reconstruction of the pectoralis muscle. The edges were reapproximated with 2-0 Vicryl sutures. Also, a block was given through the pectoralis muscle with Exparel on the right and left. Then we used 3-0 Monocryl sutures to secure the superior portion of the vertical scar. Then the inferior portion of the breast was reassessed and 7 cm were measured that would be needed in order for us to recreate the mound so that area was de-epithelialized and used as a flap from inferior to superior to re-establish our breast mound. We used 2-0 Vicryl sutures to help with the mound shape and the vertical incision was closed with 3-0 Monocryl sutures. It is 5 cm in length. The inferior portion of the skin was measured and excess skin was de-epithelialized and also used to augment the medial and the lateral portion of the breast. A 10 mm Deandre-Hernandez drain was placed at the lateral portion of the horizontal incision and then continuing closure with 3-0 Monocryl sutures. The nipple-areolar complex was then secured with 3-0 and 4-0 Monocryl sutures and also 5-0 running plain gut sutures. Prineo dressing and Xeroform were placed as dressings, Prineo for the vertical and horizontal incisions and Xeroform for the nipple-areolar complex. Good symmetry was achieved. The rest of the Exparel was infiltrated through the horizontal incision and around the drains. Bulky dressing and a surgical bra were placed. The patient was extubated in the operating room without any difficulties, transferred to the recovery room in stable condition.
[2020-06-24] MEDS: ONDANSETRON 4MG/2ML VIAL IV PRN (20:54)
[2020-06-25 02:00] VITALS: BP 111/56
[2020-06-25] MEDS: ceFAZolin SOD 1 GM in D5W MINI-BAG PLUS 50 ML IV SCH ×2 (02:10→10:07)
[2020-06-25] MEDS: LR 1,000 ML IV SCH (02:10)
[2020-06-25] MEDS: ONDANSETRON 4MG/2ML VIAL IV PRN (02:11)
[2020-06-25] MEDS: traMADol 50 MG TAB PO PRN ×2 (02:11→10:07)
[2020-06-25 06:00] VITALS: BP 140/74
--- NOTE | 2020-06-25 09:38 | IPNPDOC ---
Subjective General Date Seen: Jun 25, 2020 Subject Chief Complaint/History The patient is a 29-year-old female admitted with a reason for visit of Breast Implant Status. Patient s/p bilateral breast implants removal with breast mound reconstruction and mastopexy POD 1. Doing well. Pain controlled. Tolerating clear liquids. Ambulating. Current Medications Current Medications Current Medications Medications (Trade) Dose Ordered Sig/Hillary Route PRN Reason Start Time Stop Time Status Last Admin Dose Admin Acetaminophen/ Codeine Phosphate (Tylenol/Codeine #3 Tablet) 1 ea ASDIRECTED PRN PO SEE COMMENTS 06/24/20 15:30 06/24/20 16:30 DC 06/24/20 15:35 Cefazolin Sodium 1 gm/Dextrose 50 ml @ 100 mls/hr Q8H IV 06/24/20 15:00 06/24/20 15:05 DC Cefazolin Sodium 1 gm/Dextrose 50 ml @ 100 mls/hr Q8H IV 06/24/20 18:00 06/25/20 02:10 Fentanyl Citrate (Sublimaze) 25 mcg Q5MP PRN IV PAIN LEVEL 5-10 06/24/20 15:30 06/24/20 16:30 DC Hydromorphone HCl (Dilaudid) 0.4 mg Q5MP PRN IV PAIN LEVEL 4-7 06/24/20 15:30 06/24/20 16:30 DC Lactated Ringer's 1,000 ml @ 75 mls/hr [id number] IV 06/24/20 14:54 06/25/20 02:10 Lactated Ringer's 1,000 ml @ 100 mls/hr Q10H IV 06/24/20 15:30 06/24/20 16:30 DC Metoclopramide HCl (REGLAN INJection) 10 mg Q6HP PRN IV NAUSEA OR VOMITING 06/24/20 15:30 06/24/20 16:30 DC Morphine Sulfate (Morphine Sulfate Inj) 4 mg Q4HP PRN IV SEVERE PAIN (PS 8-10) 06/24/20 15:00 06/24/20 20:01 Ondansetron HCl (ZOFRAN INJection) 4 mg Q4H PRN IV NAUSEA OR VOMITING 06/24/20 15:00 06/25/20 02:11 Ondansetron HCl (ZOFRAN INJection) 4 mg Q4HP PRN IV NAUSEA OR VOMITING 06/24/20 15:30 06/24/20 16:30 DC Tramadol HCl (Ultram) 50 mg Q4HP PRN PO MODERATE PAIN (PS 5-7) 06/24/20 15:00 06/25/20 02:11 Allergies Coded Allergies: oxycodone (Verified Allergy, Severe, throat swells, 06/11/20) hydrocodone (Verified Allergy, Intermediate, HIVES, 06/11/20) Objective Physical Examination Examination GENERAL APPEARANCE:Patient seen, laying in bed, awake, alert, and oriented. Comfortable, in no acute distress. SKIN: Warm and moist. BREAST: Right and left soft, non-tender incisions intact. RHONA drains: L70/R40 cc/24 hr. NAC: Viable, warm, symmetrical, mild post-op ecchymosis, no expanding hematoma. LUNGS: Clear to auscultation bilaterally. No wheezing appreciated. HEART: No chest wall abnormalities. Regular rate and rhythm with no murmurs appreciated. ABDOMEN: Abdomen is soft, non-tender, non-distended. EXTREMITIES: No edema identified. No calf tenderness. Vital Signs Vital Signs Date Time Temp Pulse Resp B/P (MAP) Pulse Ox O2 Delivery O2 Flow Rate FiO2 06/25/20 06:00 98.3 59 18 140/74 (96) 100 Room Air I&Os I&O- Last 24 Hours up to 6 AM 06/25/20 05:59 Intake Total 1175 ml Output Total 280 ml Balance 895 ml Impression S/p Bilateral breast implant removal and breast mound reconstruction POD 1. Stable for discharge. Surgical findings discussed with patient. Monitor the drains. Dressings changed. F/up Plastic surgery. Plan / VTE VTE Prophylaxis Ordered?: Yes RAY ROLON DO Jun 25, 2020 09:38
[2020-06-25] MEDS ORDERED: ZOFR4TAB16 PO (09:44)
[2020-06-25] MEDS ORDERED: TRAM50TA2 PO (09:44)
[2020-06-25 10:00] VITALS: BP 111/58
== END 2020-06-25 14:04 | disposition home or self-care (01) ==
LOC: M SDC 08:29 → M MS5PR 16:30 → M SDC 06-25 14:04
PROVIDERS: ATTEND Plastic Surgery Surgery of the Hand
DX: T85.49XA Other mechanical complication of breast prosthesis and implant, initial encounter (principal); N64.81 Ptosis of breast; N64.4 Mastodynia; G43.909 Migraine, unspecified, not intractable, without status migrainosus; F41.9 Anxiety disorder, unspecified; F32.9 Major depressive disorder, single episode, unspecified; E03.9 Hypothyroidism, unspecified; Z79.899 Other long term (current) drug therapy
CPT/HCPCS: 19316; 19371; 81025; 88300; 88302; 96361; 96365; 96366; 96375; 96376; C9290; J0690; J1100; J1170; J2250; J2270; J2405; J3010

== ENCOUNTER 2020-06-30 22:05 | Emergency (ER) | payer OTHER ==
[~2020-06-30] VITALS: Ht 160 cm; Wt 59.9 kg
[~2020-06-30 22:05] MED LIST changes: -LR 1,000 ML IV ONE; +TRAM50TA2 PO; -ceFAZolin SOD 1 GM in D5W MINI-BAG PLUS 50 ML IV ONE
[2020-06-30] MEDS ORDERED: KETOROLAC 30 MG/ML 1ML VIAL As Ordered ONE (22:41)
[2020-06-30] MEDS ORDERED: KETOROLAC 30 MG/ML 1ML VIAL IV ONE (22:45)
[2020-06-30 22:59] LABS: BASO # 0.1 10^3/uL (0.0-0.2); BASO % 0.6 % (0.0-1.0); EOS # 0.4 10^3/uL (0.0-0.5); EOS % 4.4 % (0.0-3.0); HEMATOCRIT 37.2 % (36.0-47.0); HEMOGLOBIN 11.6 g/dl (12.0-15.5); LYMPH # 1.8 10^3/uL (1.5-5.0); LYMPH % 21.1 % (24.0-44.0); MEAN CORPUSCULAR HEMOGLOBIN 29.4 pg (27.0-33.0); MEAN CORPUSCULAR HGB CONC 31.2 g/dl (32.0-36.5); MEAN CORPUSCULAR VOLUME 94.4 fl (80.0-96.0); MONO # 0.6 10^3/uL (0.0-0.8); MONO % 6.9 % (0.0-5.0); NEUTROPHILS # 5.7 10^3/uL (1.5-8.5); NEUTROPHILS % 66.8 % (36.0-66.0); PLATELET COUNT, AUTOMATED 313 10^3/uL (150-450); RED BLOOD COUNT 3.94 10^6/uL (4.00-5.40); WHITE BLOOD COUNT 8.6 10^3/uL (4.0-10.0)
[2020-06-30] MEDS ORDERED: ISOVUE-370 76% 100ML VIAL As Ordered ONE (23:12)
[2020-06-30 23:23] LABS: CALCIUM LEVEL 8.9 MG/DL (8.5-10.1); CREATININE FOR GFR 1.39 MG/DL (0.55-1.30); GLOMERULAR FILTRATION RATE 57.8 (>60); POTASSIUM SERUM 4.1 MEQ/L (3.5-5.1)
--- NOTE | 2020-06-30 23:43 | REPVR ---
PROCEDURE INFORMATION: Exam: CT Chest With Contrast; Diagnostic Exam date and time: 06/30/2020 10:49 PM Age: 29 years old Clinical indication: Other: Left arm pain; Prior surgery; Surgery date: 3-7 days post-operative; Surgery type: Breast implant removal; Additional info: L arm pain S/P breast implant removal TECHNIQUE: Imaging protocol: Diagnostic computed tomography of the chest with intravenous contrast. 3D rendering (Not supervised by radiologist): MIP and/or 3D reconstructed images were created by the technologist. Radiation optimization: All CT scans at this facility use at least one of these dose optimization techniques: automated exposure control; mA and/or kV adjustment per patient size (includes targeted exams where dose is matched to clinical indication); or iterative reconstruction. Contrast material: ISO; Contrast volume: 100 ml; Contrast route: INTRAVENOUS (IV); COMPARISON: CR Abdomen,Flat Upright,PA CHEST 09/23/2019 6:57 PM FINDINGS: Lungs: Pulmonary vascular/interstitial pattern does not suggest active pulmonary edema. No suspicious lung mass or air space process. No central endobronchial lesion. Pleural space: No pleural effusion or pneumothorax. Heart: No overt cardiac enlargement or abnormal volume of pericardial fluid. Mediastinal space: No mediastinal hematoma. Residual thymic tissue is present in the anterior mediastinum. Pulmonary arteries: Central pulmonary arteries show no intraluminal defect suggestive of clot. Aorta: No thoracic aortic aneurysm or dissection. Lymph nodes: No enlarged lymph nodes. Bones/joints: Bony structures show no acute fracture or destructive process. Soft tissues: Bilateral breast implant removal changes, with surgical drains and edema in the surgical beds. Small fluid collection superficial to the anterior left ribs deep to the pectoralis muscle, measuring 5 x 1.5 cm. No peripheral enhancement. IMPRESSION: 1. Breast implant removal with surgical drains and edema/fluid in the surgical beds without peripherally enhancing collection. No explanation for upper extremity pain. 2. No concerning intrathoracic abnormality Electronically signed by: Eric Crook On 06/30/2020 23:43:49 PM
--- NOTE | 2020-06-30 23:58 | CR.PDOC ---
Plastic Surgery Consultation Date of Consultation 06/30/20 History and Physical CONSULT REPORT FOR: ER REASON FOR CONSULTATION: Left shoulder pain and numbness left arm HISTORY OF PRESENT ILLNESS: 29 y/o female s/p bilateral breast implants removal and breast mound reconstruction on 06/24/20. Patient states sharp pain in the posterior shoulder started suddenly about 3 hours ago. She also has numbness and tingling associated with the pain in the upper left arm. Able to move all fingers. No chest pain or shortness of breath. No change in breast size, increased drainage or incisional pain. Patient denies any trauma. She took last pain med this morning. Pain 8-9 out of 10 when certain position. She had some episodes of nausea thou the day as well. No vomiting. Patient describes similar sudden pain attaches in other parts of the body in the past. She was seen by pain management in the past. To her knowledge no neurological consult prior. PAST MEDICAL HISTORY: 1. Thyroid. PAST SURGICAL HISTORY: INCLUDES: 1. Thyroidectomy, left breast biopsy, bilateral breast augmentation, bilateral breast implant removal with mastopexy. PREVIOUS ANESTHESIA REACTIONS: denies ALLERGIES: Please see below. FAMILY HISTORY: non contributory. HOME MEDICATIONS: Please see below. REVIEW OF SYSTEMS: GENERAL: Denies chills, reports weight gain,. HEENT: Denies blurred vision and double vision. Denies ear symptoms. Denies hoarseness. NECK: Denies any neck pain]. CARDIOVASCULAR: Denies chest pain and palpitations. MUSCULOSKELETAL: back pain SKIN: Denies rash. NEUROLOGIC: back pain, neck pain. PSYCHIATRIC: Denies anxiety and depression. ENDOCRINE: on synthroid. HEMATOLOGY/ONCOLOGY: Denies bleeding or clotting disorder. HEART: Denies any chest pains, palpitations, paroxysmal dyspnea, orthopnea. PULMONARY: Denies chronic cough, dyspnea and wheezing. GASTROINTESTINAL: Denies rectal bleeding, family history of colon cancer, constipation, diarrhea, dysphagia, heartburn and jaundice. GENITOURINARY: Denies dysuria, frequency, hematuria and nocturia. ENDOCRINE: Denies polydipsia, polyphagia, polyuria, heat or cold intolerance. INFECTIOUS: Denies any recent upper respiratory tract infection, UTI, need for use of antibiotics. NUTRITION: Reports good appetite. PHYSICAL EXAMINATION: VITALS SIGNS: Please see below. GENERAL APPEARANCE:Patient seen, laying in bed, awake, alert, and oriented. Comfortable, in no acute distress. SKIN: Warm and moist. BREAST: Right and left soft, non-tender incisions intact. RHONA drains: 20/20 serous cc/24 hr. NAC: Viable, warm, symmetrical, no expanding hematoma. HEENT: Normocephalic, atraumatic. [place] palpebral conjunctiva, anicteric sclerae. Lips and mucosa appear moist. NECK: anterior base of the neck scar, s/p thyroidectomy. Posterior neck with reproducible pain left paraspinal, left lateral trapezius muscle LUNGS: Clear to auscultation bilaterally. No wheezing appreciated. HEART: No chest wall abnormalities. Regular rate and rhythm with no murmurs appreciated. EXTREMITIES: Extremities have no deformities. No edema identified. No calf tenderness. Left hand full fist. Numbness, tingling upper arm after reproducible pain elicited. LABORATORY DATA: Please see below. IMAGING STUDIES: CT chest negative for intrathoracic pathology, no PE. Post surgical changes. Drains in place. IMPRESSION: S/p bilateral implant removal and mastopexy. Left shoulder pain and upper arm paresthesia. PLANS: Normal healing pattern for bilateral mastopexy, unrelated to posterior muscle pain. Pain reproducible consistent with muscle spasm. Patient has scheduled appointment with plastic surgery for this Sunday. Continue with drains monitoring. Findings discussed with patient. Vital Signs Vital Signs Date Time Temp Pulse Resp B/P (MAP) Pulse Ox O2 Delivery O2 Flow Rate FiO2 06/30/20 22:36 06/30/20 22:06 98.0 96 18 100 Room Air Laboratory Data Labs 24H Laboratory Tests 2 06/30/20 22:47: Immature Granulocyte % (Auto) 0.2, Neutrophils (%) (Auto) 66.8H, Lymphocytes (%) (Auto) 21.1L, Monocytes (%) (Auto) 6.9H, Eosinophils (%) (Auto) 4.4H, Basophils (%) (Auto) 0.6, Neutrophils # (Auto) 5.7, Lymphocytes # (Auto) 1.8, Monocytes # (Auto) 0.6, Eosinophils # (Auto) 0.4, Basophils # (Auto) 0.1, Nucleated Red Blood Cells % (auto) 0.0, Anion Gap 6L, Glomerular Filtration Rate 57.8L, Calci um Level 8.9 CBC/BMP Laboratory Tests 06/30/20 22:47 Home Medications Scheduled Ondansetron HCl (Zofran) 4 Mg Tablet, 1 TAB PO Q6H Scheduled PRN Tramadol HCl (Tramadol HCl) 50 Mg Tablet, 50 MG PO Q4HP PRN for MODERATE PAIN (PS 5-7) Miscellaneous Medications Thyroid,Pork ([place] Thyroid) 90 Mg Tablet, (Reported) Allergies Coded Allergies: oxycodone (Verified Allergy, Severe, throat swells, 06/11/20) hydrocodone (Verified Allergy, Intermediate, HIVES, 06/11/20) RAY ROLON DO Jun 30, 2020 23:58
[2020-07-01 00:15] VITALS: BP 134/73
== END 2020-07-01 00:52 | disposition home or self-care (01) ==
LOC: M ED 22:05
DX: G89.18 Other acute postprocedural pain (principal); D64.9 Anemia, unspecified; Z88.5 Allergy status to narcotic agent
CPT/HCPCS: 71260; 80048; 85025; 96374; 99284; J1885; Q9967

== ENCOUNTER 2020-09-05 16:51 | Emergency (ER) | payer OTHER ==
[~2020-09-05] VITALS: Ht 160 cm; Wt 59.2 kg
[~2020-09-05 16:51] MED LIST changes: +LISI10TA22; -LISI10TA4
--- OUTSIDE RECORDS SUMMARY | 2020-09-05 16:58 | CCD | Continuity of Care Document ---
Author Author Piper RUEDA DO Organization Unknown Address [address] [place] [address] Phone [phone] Care Team Providers Care Header Dock Name Role Phone Rod Deluca M.D. [facility] [phone] Problems Description No Information Available Social History Type Date Description Comments Sex Female ETOH Use Rarely Tobacco Use Start: Unknown Non Smoker Smoking Status Reviewed: 02/07/19 Non Smoker Allergies, Adverse Reactions, Alerts Active Allergies Reaction Severity Comments Date Percocet throat swelling 02/07/2019 Medications Active Medications SIG Qnty Indications Ordering Provide r Date [place] Thyroid 90mcg Unknown Immunizations Description No Information Available Vital Signs Date Vital Result Comment 04/05/2020 8:43am BP Systolic 118 mmHg BP Diastolic 74 mmHg Heart Rate 68 /min Respiratory Rate 16 /min Body Temperature 98.0 F Height 63 inches 5'3" Weight 135.00 lb BMI (Body Mass Index) 23.9 kg/m2 [place] Body Weight 115 lb Weight 61.236 kg BSA (Body Surface Area) 1.64 m2 05/08/2019 10:50am BP Systolic 108 mmHg BP Diastolic 76 mmHg Heart Rate 64 /min Respiratory Rate 16 /min Height 63 inches 5'3" Weight 163.00 lb BMI (Body Mass Index) 28.9 kg/m2 [place] Body Weight 115 lb Weight 73.937 kg BSA (Body Surface Area) 1.77 m2 Results Description No Information Available Procedures Description No Information Available Medical Devices Description No Information Available Encounters Type Date Location Provider Dx Diagnosis Office Visit 04/05/2020 8:30a [facility]astic Surgery Maricarmendaniel Rueda DO 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 BREAST IMPLANT STATUS EXP 09/26/2020 [place] 04/05/2020 [facility] [address] [place] [address], [place] [address] [phone] Maricarmen Rueda D.O. Bilateral Breast Implant Sta tus CONSULT 1 05/15/2019 - 11/11/2019 OFFICE VISITS 3 05/15/2019 - 05/14/2020 Closed [facility] [address] [place] [address], [place] [address] [phone]
--- OUTSIDE RECORDS SUMMARY | 2020-09-05 16:58 | CCD | Summary of Care ---
Author Author [facility] Organization [facility] Address Unknown Phone Unavailable Care Team Providers Care Screw Machine Setter Name Role Phone Rod Deluca MD PCP Reason for Visit * Reason Comments Follow-up Encounter Details Care Team Description Date Type Department Moris Virk MD [address] [facility] 2nd [address] [place] [address] [phone] Sarcoidosis with bone marrow, renal, ski n and eye involvement (Primary Dx); Mild intermittent reactive airway disease without complication 08/31/2020 Office Visit [facility] [address] [facility] [address], [address] [place] [id number] Allergies Comments Active Allergy Reactions Severity Noted Date Hydrocodone-Acetaminophen Hives 02/23/2018 Oxycodone-Acetaminophen Anaphylaxis High 2017 documented as of this encounter (statuses as of 09/01/2020) Medications End Date Status Medication Sig Dispensed Refills Start Date Active Levothyroxine Sodium 175 Take 175 mcg 0 05/15 MCG CAPS by mouth 8 daily Active BENZOYL PEROXIDE 10 % 0 external wash 9 Active ketoconazole (NIZORAL) 2 0 % shampoo 9 Active TraMADol HCl 100 MG TB24 0 9 Active selenium sulfide (SELSUN) 0 2.5 % lotion 9 Active Pulmonary Supplies-see CBC with diff 2 each 0 0 sig MISCIndications: High and CMP every 9 risk medication use 2 month starting December/2018 Diagnosis: Sarcoidosis Additional Information Patient not taking. Reported on 07/21/2019 2:05 PM Active Misc. Devices (DURABLE Use as 1 each 0 MEDICAL EQUIPMENT SEE directed. CMP 9 SIG) MISCIndications: and CBC with Sarcoidosis, High risk diff. every 3 medication use months x4 starting from April 22 Diagnosis: Sarcoidosis and high risk medication use Additional Information Patient not taking. Reported on 07/21/2019 2:05 PM Active [place] Thyroid 90 MG Oral 0 Tablet 1 Active Amphetamine-Dextroampheta Take 10 mg by 0 mine 10 MG Oral Tablet mouth daily (ADDERALL) Active Albuterol Sulfate HFA 108 Inhale 2 1 each 3 (90 Base) MCG/ACT puffs into 1 Inhalation Aerosol the lungs Solution (PROVENTIL every 6 (six) HFA)Indications: hours as Sarcoidosis, Mild needed for intermittent reactive Wheezing airway disease without complication 08/31/2020 Discontinued (Reorder) Albuterol Sulfate HFA 108 Inhale 2 1 Inhaler 3 (90 Base) MCG/ACT puffs into 0 Inhalation Aerosol the lungs Solution (PROVENTIL HFA) every 6 (six) hours as needed for Wheezing documented as of this encounter (statuses as of 09/01/2020) Active Problems Problem Noted Date High risk medication use 04/01/2019 Sarcoidosis with bone marrow, renal, skin and eye inv olvement 04/03/2018 Elevated creatine kinase 02/23/2018 history of Graves disease 02/23/2018 Postoperative hypothyroidism 02/23/2018 Overview: C/w Home medication & OP Regime. ATN (acute tubular necrosis) 02/23/2018 Overview: - Etiology unclear - Nephrology consulted - Plan for Kidney biopsy. Acute blood loss anemia 02/23/2018 Overview: - Not clear about etiology. - Monitor CBC q 6hr - GI consulted on Feb and will s ee her today. Constipation 02/23/2018 documented as of this encounter (statuses as of 09/01/2020) Resolved Problems Problem Noted Date Resolved Date Drug-induced insomnia 05/02/2018 11/26/2018 Anxiety 05/02/2018 11/26/2018 documented as of this encounter (statuses as of 09/01/2020) Immunizations Name Administration Dates Next Due Influenza Quad IM Pres 04/01/2019, 05/02/2018 Free (0.5 mL dose) Pneumococcal Conjugate 06/04/2018 PCV13 documented as of this encounter Social History Date Tobacco Use Types Packs/Day Years Used Never Smoker Smokeless Tobacco: Never Used Drinks/Week oz/Week Comments Alcohol Use No Sex Assigned at Date Recorded Not on file Date Recorded COVID-19 Exposure Response 08/31/2020 1:10 PM EST In the last month, have you been in contact with No / Unsure someone who was confirmed or suspected to have Coronavirus / COVID-19? documented as of this encounter Last Filed Vital Signs Reading Time Taken Comments Vital Sign 111/73 08/31/2020 1:14 PM EST Blood Pressure 86 08/31/2020 1:14 PM EST Pulse - - Temperature 16 08/31/2020 1:14 PM EST Respiratory Rate 100% 08/31/2020 1:14 PM EST Oxygen Saturation - - Inhaled Oxygen Concentration 57.2 kg (126 lb 3.2 oz) 08/31/2020 1:14 PM EST Weight 160 cm (5' 2.99") 08/31/2020 1:14 PM EST Height 22.36 08/31/2020 1:14 PM EST Body Mass Index documented in this encounter Progress Notes * Moris Virk MD - 08/31/2020 1:00 PM EST Subjective: Patient ID: Piper Benavidez is a 30 y.o. female. HPI REASON FOR VISIT: Follow up for management of sarcoidosis with bone marrow, jarrett l and eye involvment Sarcoidosis history: The patient was hospitalized at [facility] [place] on 2017 with complaint of feeling fatigued, low energy level, loss of appet ite, loss of weight for a few months. She also had some shortness of breath on exertion. At the time of admission her blood tests showed creatinine of 4.4, h ematocrit 20.9, hemoglobin 7.2, platelet count normal at 331. Her LFT was marlon l, except mildly elevated alkaline phosphatase 108. For further workup she had multiple tests done including an HIV, hepatitis B, C serology, QuantiFERON, all came negative. Her urine did not show any pyuria or hematuria. Her renal ultrasound was unremarkable. CT abdomen done outside was u nremarkable. Liver and spleen were all normal. No intraabdominal lymphadenopat hy found. Vasculitis panel including KAMRAN and rheumatoid factor, all came negativ e. She had parvovirus antibody serology done, IgG was positive, and IgM was neg ative. She was evaluated by Nephrology and Erp Analyst. Her serum protein warren ctrophoresis showed no paraprotein. Urine electrophoresis showed mild albuminur ia. Because of the anemia and history of possible GI ulcers, she also underwent uppe r GI endoscopy that showed a normal duodenum, stomach, and esophagus. Subsequently, she underwent bone marrow biopsy that showed no evidence of lympho ma, rather it showed extensive non-caseating granulomas with negative AFB and fu ngal stain. After that she had a chest x-ray did not show any hilar lymphadenop athy or pulmonary infiltrates. Her QuantiFERON TB test was negative. Then she u nderwent renal biopsy, that showed granulomatous interstitial nephritis. Her MALIHA level was normal at 27. She reported being diagnosed with Graves' disease in 2017. Initially she was tr eated with methimazole and propylthiouracil, which did not work well, so she un derwent thyroidectomy. She denied being exposed to any chemical metals. Initial visit:she reported shortness of breath upon walking 1-2 blocks, without cough, wheezing. She also reported vision problems in both eyes, was evaluated by sorter operator at [place] and she was found to have acute iritis. She al so reported low energy and fatigue. She reported bumps over her tattoos since . Urine histoplasma Ag was negative, ANCA was negative. PFT showed normal spirometry, normal lung volumes. DLCO moderately reduced at 59%. FVC is 3.65, 107% of predicted. FEV1 is 3.10, 115% predicted. FEV1/FVC r atio is 85. TLC is 4.78 at 97%. No TAX ADJUSTER. IL2 receptor Ab was very high at 3200. She was started on Prednisone 60 mg daily with PCP Prophylaxis. 05/02/18: Reported improved symptoms (cough, wheeze, fatigue, skin lesions over tattoo). But reported insomnia.Repeat Labs showed improved Cr. Advised to decre ase prednisone to 40 mg for 2 weeks then 35 mg daily. Prescribed Xanax to help w ith anxiety and Insomnia. 06/04/18: Came for urgent visit with worsening symptoms after going down on pred nisone to 40 mg. Prednsione increased to 60 mg and Methotrexate 7.5 mg started. 07/03/18 Called in stating skin lesions over tattoo were persistent, c/o back pa in, arthralgia. Repeat labs showed worsening Cr to 1.82. Reported being compla int with prednisone. Has gained 20 pounds weight over last couple of months Methotrexate switched to Cellcept. 07/31/18: Comes for follow up. Tolerating Cellcept 1000 mg BID. Prednisone dose do wn to 40 mg daily. Weight stable. Small Bumps over left wrist tattoos. Advised t o taper prednisone by 5 mg every 2 weeks. 10/01/18: Had stopped prednisone 2-3 weeks ago.On Cellcept 1000 mg BID. Reported relapse of eye redness and blurry vision, saw Filter Assembler in [place] , was diagnosed with acute iridocyclitis. Had been prescribed steroid eye drop. Repo rts feeling better. No relapse of skin lesions. 11/14/18 Cr 1.63, CBC normal. Hearing problem. Brain MRI showed no enhancement. I advised to go down on Cellcept to 1000 mg in AM and 500 mg in pm. After that she has had 3 for follow-up visit with repeat labs which showed stable renal fun ction. Noted CellCept on regular basis. Last visit 03/09/2020: She stated that she had stopped taking both prednisone and CellCept at the same time in September 2018, but she did not want to tell me because she wanted to see h ow she does first. She was doing fine. Her labs were stable. Today she comes with repeat labs. Today she reports doing well. She denies any relapse of cough, shortness of amy ath, fever, chills, skin lesions or eye symptoms. She denies any other symptoms . Called few weeks ago complaining of chest tightness when wearing face mask, for which I prescribed her PRN albuterol. Reports doing well Piper has a past medical history of Elevated serum creatinine, Graves disease (2017), and Graves disease. Piper has Elevated creatine kinase; history of Graves disease; Postoperative h ypothyroidism; ATN (acute tubular necrosis); Acute blood loss anemia; Constipati on; Sarcoidosis with bone marrow, renal, skin and eye involvement; and High risk medication use on their problem list. Piper has a past surgical history that includes Tonsillectomy; Thyroidectomy (08/02/2017); pr esophagogastroduodenoscopy transoral diagnostic (N/A, 02/24/2018) ; Cyst Removal (Right); Breast reconstruction; and Nasal sinus surgery. Piper reports that she has never smoked. She has never used smokeless tobacco . She reports that she does not drink alcohol or use drugs. Piper has a current medication list which includes the following prescription( s): amphetamine-dextroamphetamine, armour thyroid, albuterol, benzoyl peroxide, ketoconazole, levothyroxine sodium, durable medical equipment see sig, pulmonary supplies-see sig, selenium sulfide, and tramadol hcl. Piper is allergic to percocet [oxycodone-acetaminophen] and lortab [hydrocodon e-acetaminophen]. Review of Systems Constitutional: Negative for chills, diaphoresis, fatigue, fever and unexpected weight change. HENT: Negative for congestion, postnasal drip, sore throat and voice change. Eyes: Negative for discharge and redness. Respiratory: Positive for chest tightness (Intermittent with mask). Negative for cough, shortness of breath and wheezing. Cardiovascular: Negative for chest pain, palpitations and leg swelling. Gastrointestinal: Negative for abdominal pain, diarrhea, nausea and vomiting. Genitourinary: Negative for hematuria. Musculoskeletal: Negative for joint swelling. Skin: Negative for rash. Neurological: Negative for dizziness, weakness and headaches. Hematological: Negative for adenopathy. Objective: Visit Vitals BP 111/73 (BP Location: Right arm, Patient Position: Sitting, Cuff size: Regular ) Pulse 86 Resp 16 Ht 1.6 m (5' 2.99") Wt 57.2 kg (126 lb 3.2 oz) SpO2 100% BMI 22.36 kg/m Physical Exam Vitals signs reviewed. Constitutional: General: She is not in acute distress. Appearance: She is well-developed. She is not diaphoretic. HENT: Head: Normocephalic. Eyes: General: No scleral icterus. Right eye: No discharge. Left eye: No discharge. Conjunctiva/sclera: Conjunctivae normal. Cardiovascular: Rate and Rhythm: Normal rate. Heart sounds: Normal heart sounds. No murmur. Pulmonary: Effort: Pulmonary effort is normal. No respiratory distress. Breath sounds: Normal breath sounds. No wheezing or rales. Abdominal: General: There is no distension. Palpations: Abdomen is soft. Tenderness: There is no abdominal tenderness. Musculoskeletal: Comments: No clubbing Lymphadenopathy: Cervical: No cervical adenopathy. Skin: General: Skin is warm. Neurological: Mental Status: She is alert and oriented to person, place, and time. Comments: Grossly non-focal Assessment: ASSESSMENT AND PLAN: Sarcoidosis with bone marrow, renal, skin and eyes involvement -H/O Grave's disease s/o sx and radiation - Initially started on Prednisone, later MTX added, Cr worsened with MTX, switc hed to Cellcept in 06/2018 - Prednisone stopped in early september 2018. Off steroid eye drops - Repeat PFT 07/01/19 showed improved DLCO at 77%, normal jena and lung volumes . She stopped taking both CellCept and prednisone back in September 2018. Has not had any relapse of any symptoms. Repeated blood tests done yesterday sh ows stable creatinine at around 1.55. No hypercalcemia unremarkable CBC and LFT s It seems her sarcoidosis has gone into remission. Currently no s/s of relapse Reports occasional chest tightness upon wearing face mask, controlled with PRN a lbuterol Reports occasional blurring of vision, twice, transient since last visit. Has angel d eye checked in June at [place], was told to have active inflammation. Re cord not available Patient is moving to [place] in October. Plan: Advised that her sarcoidosis seems to be in remission, she just needs annual lab s CMP & CBC through PCP See an eye doctor if vision worsens Cont PRN albuterol Follow up with pulmonary if breathing worsens Follow up as needed Overall amount of data reviewed, level of risk, complexity and medical decision making is: moderate Plan: documented in this encounter Plan of Treatment Health Maintenance Due Date Last Done Comments MMR Vaccines (1 of 1 - 1991 Standard series) Varicella Vaccines (1 of 1991 2 - 2-dose childhood series) DTaP,Tdap,and Td Vaccines 1997 (1 - Tdap) Influenza Vaccine 04/22/2020 04/01/2019, 05/02/2018 Pneumococcal Vaccine: 65+ 2055 06/04/2018 Years (2 of 2 - PPSV23) HIV Screening Completed 02/25/2018 Pneumococcal Vaccine: Aged Out 06/04/2018 No longe r eligible based on patient's age to Pediatrics (0 to 5 Years) complete this topic and At-Risk Patients (6 to 64 Years) HIB Vaccines Aged Out No longer eligible based on patient's age to complete this topic Hepatitis A Vaccines Aged Out No longer eligibl e based on patient's age to complete this topic Hepatitis B Vaccines Aged Out No longer eligibl e based on patient's age to complete this topic IPV Vaccines Aged Out No longer eligible based on patient's age to complete this topic documented as of this encounter Results Not on filedocumented in this encounter Visit Diagnoses Diagnosis Sarcoidosis with bone marrow, renal, sk in and eye involvement - Primary Sarcoidosis Mild intermittent reactive airway disea se without complication documented in this encounter
--- OUTSIDE RECORDS SUMMARY | 2020-09-05 16:58 | CCD | Continuity of Care Document ---
Author Author Piper RUEDA DO Organization Unknown Address [address] [place] [address] Phone [phone] Care Team Providers Care Bid Analyst Name Role Phone Rod Deluca M.D. [facility] [phone] Problems Description No Information Available Social History Type Date Description Comments Sex Female ETOH Use Rarely Tobacco Use Start: Unknown Non Smoker Smoking Status Reviewed: 02/07/19 Non Smoker Allergies, Adverse Reactions, Alerts Active Allergies Reaction Severity Comments Date Percocet throat swelling 02/07/2019 Medications Active Medications SIG Qnty Indications Ordering Provide r Date [place] Thyroid 90mcg Unknown Immunizations Description No Information Available Vital Signs Date Vital Result Comment 07/02/2020 10:26am BP Systolic 108 mmHg BP Diastolic 66 mmHg Heart Rate 72 /min O2 % BldC Oximetry 98 % Height 63 inches 5'3" Weight 128.38 lb BMI (Body Mass Index) 22.7 kg/m2 [place] Body Weight 115 lb Weight 58.231 kg BSA (Body Surface Area) 1.60 m2 06/28/2020 10:44am BP Systolic 122 mmHg BP Diastolic 74 mmHg Heart Rate 80 /min Respiratory Rate 16 /min Body Temperature 97.9 F Height 63 inches 5'3" Weight 133.50 lb BMI (Body Mass Index) 23.6 kg/m2 [place] Body Weight 115 lb Weight 60.556 kg BSA (Body Surface Area) 1.63 m2 Results Test Acquired Date Facility Test Result H/L Range Note Laboratory test finding 06/24/2020 [facility] [address], [place] [id number] [phone] Pathology Request For Service (SEE NOTE) 1 1 FINAL DIAGNOSIS A - Right breast capsule, excision: Fibroadipose and breast tissue. B - Left breast capsule, removal: Benign breast tissue, as well as fibroadipose tissue with reactive changes. Focal infiltration by foamy macrophages is noted. C - Right and left breast implants, removal: Implants. See gross description. 06/28/2020 - 145 CLINICAL DIAGNOSIS Breast implant status, bilateral 06/25/2020 - 1447 GROSS DIAGNOSIS A - Received in formalin labeled "right breast capsule" are multiple portions of fibrotic and membranous fibroadipose tissue, in aggregate 8 x 3 x 2 cm. No gross lesion is noted, medical center representative in one. B - Received in formalin labeled "left breast capsule" is a saccular membranous portion of pink-cano tissue. The diameter is maximally 10 cm. Focal adherent gelatinous materials are noted attached to one aspect of the specimen. A suture is also noted in the same aspect in mid specimen. Facility Sales And Admin sections are submitted in one. - C - Received in formalin labeled "right and left breast implant" consists of two breast implants. The right is Allergan style 20, 450 cc, lot #[id number], received intact, measuring 12.5 x 12.5 x 3.5 cm. The left is Allergan style 20, 450 cc, lot #[id number], received ruptured, measuring 12.5 x 12.5 x 2.5 cm. No soft tissue is identified. This specimen is for gross examination only and returned to the operating room after evaluation. -SV 06/25/2020 - 1447 Signed Barrie Boyer MD 06/28/2020 1451 Procedures Date Code Description Status 06/24/2020 [address] Completed 06/24/2020 88789 Mastopexy Completed Medical Devices Description No Information Available Encounters Type Date Location Provider Dx Diagnosis Office Visit 04/05/2020 8:30a [facility] Plastic Surgery Maricarmen Rueda DO N64.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 Z98.82 Breast implant status Assessments Date Code Description Provider 06/28/2020 N64.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 Maricarmen Rueda DO 06/28/2020 Z98.82 Breast implant status Maricarmen smith, DO 06/24/2020 T85.49xA Other mechanical com plication of breast prosthesis and implant, initial encounter Maricarmen Rueda DO 06/24/2020 T85.43xA Leakage of breast prosthesis and implant, initial encounter Maricarmen Rueda, DO 06/24/2020 T85.848A Pain due to other in ternal prosthetic devices, implants and grafts, initial encounter Maricarmen Rueda, DO 06/24/2020 N64.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 Maricarmen Rueda, DO 04/05/2020 N64.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 Maricarmen Chuy, DO 04/05/2020 Z98.82 Breast implant status Maricarmen smith DO Plan of Treatment No Information Available Functional Status Description No Information Available Mental Status Description No Information Available Referrals Refer to Reason for Referral Status Appt Date Maricarmen Rueda D.O. BREAST IMPLANT STATUS EXP 09/26/2020 [place] 04/05/2020 [facility] [address] [place] [address], [place] [address] [phone] Maricarmen Rueda D.O. Bilateral Breast Implant Sta tus CONSULT 1 05/15/2019 - 11/11/2019 OFFICE VISITS 3 05/15/2019 - 05/14/2020 Closed [facility] [address] [place] [address], [place] [address] [phone]
--- OUTSIDE RECORDS SUMMARY | 2020-09-05 16:58 | CCD | Continuity of Care Document ---
Author Author Piper RUEDA DO Organization Unknown Address [address] [place] [id number] Phone [phone] Care Team Providers Care Cane Stripper Name Role Phone Rod Deluca M.D. AUT [phone] Problems Description No Information Available Social History Type Date Description Comments Sex Female ETOH Use Rarely Tobacco Use Start: Unknown Non Smoker Smoking Status Reviewed: 02/07/19 Non Smoker Allergies, Adverse Reactions, Alerts Active Allergies Reaction Severity Comments Date Percocet throat swelling 02/07/2019 Medications Active Medications SIG Qnty Indications Ordering Provide r Date Colace 100mg Capsules 1 tab by mouth three times a day as needed 21caps Maricarmen Rueda DO 07/02/2020 [place] Thyroid 90mcg Unknown Immunizations Description No Information Available Vital Signs Date Vital Result Comment 07/26/2020 8:23am BP Systolic 138 mmHg BP Diastolic 82 mmHg Heart Rate 84 /min Respiratory Rate 14 /min Body Temperature 99.1 F Height 63 inches 5'3" Weight 120.00 lb reported BMI (Body Mass Index) 21.3 kg/m2 [place] Body Weight 115 lb Weight 54.432 kg BSA (Body Surface Area) 1.56 m2 07/02/2020 10:26am BP Systolic 108 mmHg BP Diastolic 66 mmHg Heart Rate 72 /min O2 % BldC Oximetry 98 % Height 63 inches 5'3" Weight 128.38 lb BMI (Body Mass Index) 22.7 kg/m2 [place] Body Weight 115 lb Weight 58.231 kg BSA (Body Surface Area) 1.60 m2 Results Test Acquired Date Facility Test Result H/L Range Note Laboratory test finding 06/24/2020 [facility] Lab [address] [place] [address] [phone] Pathology Request For Service (SEE NOTE) 1 [...] 2 cm. No gross lesion is noted, credit resolution representative in one. B - Received in formalin labeled "left breast capsule" is a saccular membranous portion of pink-cano tissue. The diameter is maximally 10 cm. Focal adherent gelatinous materials are noted attached to one aspect of the specimen. A suture is also noted in the same aspect in mid specimen. Gum Machine Operator sections are submitted in one. -SH C - Received in formalin labeled "right and left breast implant" consists of two breast implants. The right is Allergan style 20, 450 cc, lot #[id number], received intact, measuring 12.5 x 12.5 x 3.5 cm. The left is Allergan style 20, 450 cc, lot #[id number], received ruptured, measuring 12.5 x 12.5 x 2.5 cm. No soft tissue is identified. This specimen is for gross examination only and returned to the operating room after evaluation. -SV 06/25/2020 - 1447 Signed Barrie Boyer MD 06/28/2020 1451 Procedures Date Code Description Status 06/24/2020 07007 Periprosthetic [address] [place] Completed 06/24/2020 42534 Mastopexy Completed Medical Devices Description No Information Available Encounters Type Date Location Provider Dx Diagnosis Office Visit 07/02/2020 10:15a [facility] Maricarmen Pale y, DO T85.49xD Mech compl of breast prosthesis and impl ant, subs encntr T85.43xD Leakage of breast prosthesis and implant, subs encntr T85.848D Pain due to other internal p rosth dev/grft, subs Office Visit 06/28/2020 10:15a [facility] Maricarmen Rueda, DO N64.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 Z98.82 Breast implant status Z48.89 Encounter for other specifie d surgical aftercare Office Visit 04/05/2020 8:30a [facility] Maricarmen Rueda, DO N64.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 Z98.82 Breast implant status Assessments Date Code Description Provider 07/02/2020 T85.49xD Other mechanical com plication of breast prosthesis and implant, subsequent encounter Maricarmen Rueda, DO 07/02/2020 T85.43xD Leakage of breast pr osthesis and implant, subsequent encounter Maricarmen Rueda, DO 07/02/2020 T85.848D Pain due to other in ternal prosthetic devices, implants and grafts, subsequent encounter Maricarmen Rueda, DO 06/28/2020 N64.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 Maricarmen Rueda, DO 06/28/2020 Z98.82 Breast implant status Maricarmen smith, DO 06/28/2020 Z48.89 Encounter for other specified ramsey rgical aftercare Maricarmen Rueda, DO 06/24/2020 T85.49xA Other mechanical com plication of breast prosthesis and implant, initial encounter Maricarmen Rueda, DO 06/24/2020 T85.43xA Leakage of breast prosthesis and implant, initial encounter Maricarmen Rueda, DO 06/24/2020 T85.848A Pain due to other in ternal prosthetic devices, implants and grafts, initial encounter Maricarmen Rueda, DO 06/24/2020 N64.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 Maricarmen Rueda, DO 04/05/2020 N64.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 Maricarmen Rueda, DO 04/05/2020 Z98.82 Breast implant status Maricarmen Chu y, DO Plan of Treatment No Information Available Functional Status Description No Information Available Mental Status Description No Information Available Referrals Refer to Dr Reason for Referral Status Appt Date Maricarmen Rueda D.O. BREAST IMPLANT STATUS EXP 09/26/2020 [place] 04/05/2020 [facility] [address] [place] [address], [place] [address] [phone] Maricarmen Rueda D.O. Bilateral Breast Implant Sta tus CONSULT 1 05/15/2019 - 11/11/2019 OFFICE VISITS 3 05/15/2019 - 05/14/2020 Closed [facility] [address] [facility] [place] [address] [phone]
--- OUTSIDE RECORDS SUMMARY | 2020-09-05 16:58 | CCD ---
Author Author [facility] Organization [facility] Address Unknown Phone Unavailable Care Team Providers Care Art Teacher Name Role Phone Telma H R Gilbert Unavailable Unavailable Telma, H R Gilbert Unavailable Unavailable Telma, H R Gilbert Unavailable Unavailable Telma, H R Giblert Unavailable Unavailable Telma, H R Gilbert Unavailable Unavailable Telma, H R Gilbert Unavailable Unavailable Telma, H R Gilbert MD Unavailable Unavailable Telma, H R Gilbert Unavailable Unavailable Telma, H R Gilbert Unavailable Unavailable Telma, H R Gilbert Unavailable Unavailable Telma, H R Gilbert MD Unavailable Unavailable Telma, H R Gilbert Unavailable Unavailable Telma, H R Gilbert Unavailable Unavailable Telma, H R Gilbert Unavailable Unavailable Telma, H R Gilbert Unavailable Unavailable Telma, H R Gilbert Unavailable Unavailable Telma, H R Gilbert MD Unavailable Unavailable Telma, H R Gilbert MD Unavailable Unavailable Telma, H R Gilbert MD Unavailable Unavailable Telma, H R Gilbert MD Unavailable Unavailable GONZALES, E RAY DO Unavailable Unavailable GONZALES, E RAY DO Unavailable Unavailable GONZALES, E RAY DO Unavailable Unavailable GONZALES, E RAY DO Unavailable Unavailable GONZALES, E RAY DO Unavailable Unavailable GONZALES, E RAY DO Unavailable Unavailable GONZALES, E RAY DO Unavailable Unavailable GONZALES, E RAY DO Unavailable Unavailable GONZALES, E RAY DO Unavailable Unavailable GONZALES, E RAY DO Unavailable Unavailable GONZALES, E RAY DO Unavailable Unavailable GONZALES, E RAY DO Unavailable Unavailable GONZALES, E RAY DO Unavailable Unavailable GONZALES, E RAY DO Unavailable Unavailable GONZALES, E RAY DO Unavailable Unavailable GONZALES, E RAY DO Unavailable Unavailable GONZALES, E RAY DO Unavailable Unavailable GONZALES, E RAY DO Unavailable Unavailable GONZALES, E RAY DO Unavailable Unavailable GONZALES, E RAY DO Unavailable Unavailable GONZALES, E RAY DO Unavailable Unavailable Mobeen, Derrick MD Unavailable Unavailable Mobeen, Derrick MD Unavailable Unavailable Mobeen, Derrick MD Unavailable Unavailable Mobeen, Derrick MD Unavailable Unavailable Mobeen, Derrick MD Unavailable Unavailable Mobeen, Derrick MD Unavailable Unavailable Mobeen, Derrick MD Unavailable Unavailable Mobeen, Derrick MD Unavailable Unavailable Mobeen, Derrick MD Unavailable Unavailable Mobeen, Derrick MD Unavailable Unavailable Mobeen, Derrick MD Unavailable Unavailable Mobeen, Derrick MD Unavailable Unavailable Mobeen, Derrick MD Unavailable Unavailable Mobeen, Derrick MD Unavailable Unavailable Mobeen, Derrick MD Unavailable Unavailable Mobeen, Derrick MD Unavailable Unavailable Mobeen, Derrick MD Unavailable Unavailable Mobeen, Derrick MD Unavailable Unavailable Mobeen, Derrick MD Unavailable Unavailable Mobeen, Derrick MD Unavailable Unavailable Mobeen, Derrick MD Unavailable Unavailable Mobeen, Derrick MD Unavailable Unavailable Mobeen, Derrick MD Unavailable Unavailable Mobeen, Derrick MD Unavailable Unavailable Mobeen, Derrick MD Unavailable Unavailable Mobeen, Derrick MD Unavailable Unavailable Mobeen, Derrick MD Unavailable Unavailable Mobeen, Derrick MD Unavailable Unavailable Mobeen, Derrick MD Unavailable Unavailable Mobeen, Derrick MD Unavailable Unavailable Sah, P Birend MD Unavailable Unavailable Sah, P Birend MD Unavailable Unavailable Sah, P Birend MD Unavailable Unavailable Sah, P Birend MD Unavailable Unavailable Sah, P Birendra LANTIGUA Unavailable Unavailable Sah, P Birend MD Unavailable Unavailable Sah, P Birend MD Unavailable Unavailable Sah, P Birendra LANTIGUA Unavailable Unavailable Sah, P Birend MD Unavailable Unavailable Sah, P Birend MD Unavailable Unavailable Sah, P Birend MD Unavailable Unavailable Sah, P Birend MD Unavailable Unavailable Sah, P Birend MD Unavailable Unavailable Sah, P Birend MD Unavailable Unavailable Sah, P Birendra LANTIGUA Unavailable Unavailable Sah, P Birend MD Unavailable Unavailable Sah, P Birendra MD Unavailable Unavailable Sah, P Birendra MD Unavailable Unavailable Sah, P Birendra MD Unavailable Unavailable Sah, P Birendra MD Unavailable Unavailable Sah, P Birendra MD Unavailable Unavailable Sah, P Birendra MD Unavailable Unavailable Sah, P Birendra MD Unavailable Unavailable Sah, P Birendra MD Unavailable Unavailable Sah, P Birendra MD Unavailable Unavailable Sah, P Birendra MD Unavailable Unavailable Sah, P Birendra MD Unavailable Unavailable Sah, P Birendra MD Unavailable Unavailable Sah, P Birendra MD Unavailable Unavailable Sah, P Birendra MD Unavailable Unavailable Sah, P Birendra MD Unavailable Unavailable Sah, P Birendra MD Unavailable Unavailable Sah, P Birendra MD Unavailable Unavailable Sah, P Birendra MD Unavailable Unavailable Sah, P Birendra MD Unavailable Unavailable Sah, P Birendra MD Unavailable Unavailable Sah, P Birendra MD Unavailable Unavailable Sah, P Birendra MD Unavailable Unavailable Sah, P Birendra MD Unavailable Unavailable Sah, P Birendra MD Unavailable Unavailable Sah, P Birendra MD Unavailable Unavailable Sah, P Birendra MD Unavailable Unavailable Sah, P Birendra MD Unavailable Unavailable Sah, P Birendra MD Unavailable Unavailable Sah, P Birendra MD Unavailable Unavailable Deluca, Faisal Rod Unavailable Unavailable Deluca, Faisla Rod Unavailable Unavailable Deluca, Faisal Rdo Unavailable Unavailable Deluca, Faisal Rod Unavailable Unavailable Deluca, Faisal Rod Unavailable Unavailable Deluca, Faisal Rod Unavailable Unavailable Deluca, Faisal Rod Unavailable Unavailable Deluca, Faisal Rod Unavailable Unavailable Deluca, Faisal Rod Unavailable Unavailable Deluca, Faisal Rod Unavailable Unavailable Deluca, Faisal Rod Unavailable Unavailable Deluca, Faisal Rod Unavailable Unavailable Deluca, Faisal Rod Unavailable Unavailable Deluca, Faisal Rod Unavailable Unavailable Deluca, Faisal Rod Unavailable Unavailable Deluca, Faisal Rod Unavailable Unavailable Deluca, Faisal Rod Unavailable Unavailable Deluca, Faisal Rod Unavailable Unavailable Deluca, Faisal Rod Unavailable Unavailable Deluca, Faisal Rod Unavailable Unavailable Dleuca, Faisal Rod Unavailable Unavailable Deluca, Faisal Rod Unavailable Unavailable CandyDora armando MD Unavailable Unavailable CandyDora armando MD Unavailable Unavailable CandyDora armando MD Unavailable Unavailable CandyDora armando MD Unavailable Unavailable CandyDora armando MD Unavailable Unavailable CandyDora armando MD Unavailable Unavailable CandyDora armando MD Unavailable Unavailable CandyDora armando MD Unavailable Unavailable CandyDora armando MD Unavailable Unavailable CandyDora armando MD Unavailable Unavailable Dora Gupta MD Unavailable Unavailable CandyDora armando MD Unavailable Unavailable Re-disclosure Warning The records that you are about to access may contain information from federally-assisted alcohol or drug abuse programs. If such information is present, then the following federally mandated warning applies: This information has been disclosed to you from records protected by federal confidentiality rules (42 CFR part 2). The federal rules prohibit you from making any further disclosure of this information unless further disclosure is expressly permitted by the written consent of the person to whom it pertains or as otherwise permitted by 42 CFR part 2. A general authorization for the release of medical or other information is NOT sufficient for this purpose. The Federal rules restrict any use of the information to criminally investigate or prosecute any alcohol or drug abuse patient.The records that you are about to access may contain highly sensitive health information, the redisclosure of which is protected by Article 27-F of the [facility] Public Health law. If you continue you may have access to information: Regarding HIV / AIDS; Provided by facilities licensed or operated by the [facility] Office of Mental Health; or Provided by the [facility] Office for People With Developmental Disabilities. If such information is present, then the following [facility] mandated warning applies: This information has been disclosed to you from confidential records which are protected by state law. State law prohibits you from making any further disclosure of this information without the specific written consent of the person to whom it pertains, or as otherwise permitted by law. Any unauthorized further disclosure in violation of state law may result in a fine or shelter sentence or both. A general authorization for the release of medical or other information is NOT sufficient authorization for further disc losure. Family History Family Member Name Family Member Gender Family Member Status Date o f Status Description Data Source(s) Unknown Unknown Problem [facility] ([facility]) Unknown Male Problem [facility] ([facility] ) Encounters Encounter Providers Location Date Indications Data Source(s ) Outpatient Attender: Moris Virk MD [id number] 2020 12:00:00 AM EST - 08/31/2020 01:59:38 PM EST [facility] Sarcoidosis, unspecified Office Visit Attender: RAY Wilks/Marcin/Artur/Reind l 07/02/2020 09:15:00 AM EST [facility] Office Visit Attender: RAY GONZALES Wilks/Friendship/Artur/Reind l 06/28/2020 09:15:00 AM EST [facility] ([facility] Outpatient Attender: RAY COFFMANMarlen Wilks/Friendship/Artur/Reind l 04/05/2020 08:30:00 AM EDT MED[facility] ([facility], ) Outpatient Attender: Moris Virk MD [id number] 03/09/2020 12:00:00 AM [facility] Outpatient Attender: Gilbert Hollis MD [id number] 03/01/2020 12:0 0:00 AM EDT Chronic kidney disease, stage 3 (moderate) [facility] Chronic kidney disease, stage 3 (moderat e) Outpatient Referrer: Prashant Gupta MD 12/03/2019 04:18:00 P M [facility] Outpatient Attender: Mrois Virk MD [id number] 2019 12:00:00 AM EDT - 11/11/2019 12:42:11 PM [facility] Outpatient Referrer: Prashant Gupta MD 10/21/2019 06:03:00 A M [facility] Outpatient Referrer: Prashant Gupta MD 08/11/2019 05:54:00 A M [facility] Outpatient Referrer: Prashant Gupta MD 07/31/2019 02:10:00 P M [facility] Outpatient Attender: Derrick Rogers MDReferrer: Rod Deluca [id number] 07/21/2019 12:00:00 AM EST - 07/21/2019 03:17:50 PM [facility] Outpatient Attender: Derrick Rogers MD 07/21/2019 12:00:00 A M [facility] Medications Medication Brand Name Start Date Product Form Dose Route Admi nistrative Instructions Pharmacy Instructions Status Indications Reaction Description Data Source(s) Albuterol Sulfate HFA 108 (90 Base) MCG/ ACT Inhalation Aerosol Solution (PROVENTIL HFA) 5532-6903-47 08/31/2020 12:00:00 AM EST 2 {puff} Inha lation active Mild intermittent reactive a irway disease without complicationSarcoidosis Inhale 2 puffs into the lung s every 6 (six) hours as needed for Wheezing [facility] 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 Sarcoidosis thyroid (HALFWAY) 90 MG Oral Tablet [Windsor Thyroid] Windsor Thyroid 90 MG Oral Tablet Windsor Thyroid 90 MG Oral Tablet 08/21/2020 12:00:00 AM EST active [facility] Docusate Sodium 100 MG Oral Capsule [Colace] Colace 05/2020 12:00:00 AM EST ORAL active MEDENT ( [facility], ) Albuterol Sulfate HFA 108 (90 Base) MCG/ ACT Inhalation Aerosol Solution (PROVENTIL HFA) 7204-2903-11 02/27/2020 12:00:00 AM EDT 2 {puff} Inha lation aborted Inhale 2 puffs i nto the lungs every 6 (six) hours as needed for Wheezing [facility] Mycophenolic Acid 180 MG Delayed Release Oral Tablet mycophenolic acid (MYFORTIC) 180 MG delayed-release tablet mycophenolic acid (MYFORTIC) 180 MG delayed-release tablet 11/20/2018 12:00:00 AM EDT 180 mg Oral active Take 1 tablet by mouth Two Times Daily [facility] Levothyroxine Sodium 0.15 MG Oral Tablet [Synthroid] S YNTHROID 150 MCG tablet SYNTHROID 150 MCG tablet 09/27/2018 12:00:00 AM EST aborted [facility] Sulfamethoxazole 800 MG / Trimethoprim 1 60 MG Oral Tablet sulfamethoxazole- trimethoprim (BACTRIM DS,SEPTRA DS) 800-160 MG per tablet sulfamethoxazole- trimethoprim (BACTRIM DS,SEPTRA DS) 800-160 MG per tablet 06/24/2018 12:00:00 AM EST aborted [facility] Insurance Providers Payer name Policy type / Coverage type Policy ID Covered republican ID Covered republican's relationship to arce Policy Arce Plan Information [facility] [id number] SP [id number] OTHER B [id number] Self [id number] [facility] [id number] Self [id number] OTHER B [id number] Self [id number] 'S ADMINISTRATION [id number] SP [id number] [facility] ACTIVE DUTY [id number] SP [id number] OPTUM [place] O [id number] S [id number] VA [facility] OPTUM [id number] SP [id number] WPS [facility] [id number] SP [id number] WEST O [id number] S [id number] [place]/136E O [id number] S [id number] 'S ADMINISTRATION [id number] SP [id number] OTHER B [id number] Self [id number] OTHER B [id number] Self [id number] [employer] [facility] O [id number] S [id number] East 2018 Commercial [id number] Self [id number] East Referrals Commercial [id number] Self [id number] East Referrals Commercial [id number] Self [id number] EAST ACTIVE DUTY [id number] SP [id number] East Referrals Commercial [id number] Self [id number] East Referrals Commercial [id number] Self [id number] U [id number] Self [id number] U [id number] Self [id number] EAST [employer]MANA - O/P [id number] 18 [id number] BA [facility] [id number] Problems, Conditions, and Diagnoses Code Display Name Description Problem Type Effective Dates Data Source(s) J45.20 Mild intermittent asthma, uncomplicated Mild intermittent asthma, uncomplicated Diagnosis 08/31/2020 01:11:14 PM EST [facility] 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 Other chronic tubulo- interstitial nephritis Diagnosis 03/01/2020 12:00:00 AM EDT [facility] N18.3 Chronic kidney disease, stage 3 (moderat e) Chronic kidney disease, stage 3 (moderate) Diagnosis 03/01/2020 12:00:00 AM [facility] Surgeries/Procedures Procedure Description Date Indications Data Source(s) MASTOPEXY 06/24/2020 12:00:00 AM EST Eloy CAM ([facility], ) PERIPROSTHETIC CAPSULECTOMY BREAST 06/24/2020 12:00:00 AM RAFA COHEN ([facility], ) URINE RANDOM TP/CRE RATIO URINE RANDOM TP/CRE RATIO Routine 07/21/2019 3:35 PM EST 07/21/2019 08:35:00 PM [facility] URNLS DIP STICK/TABLET REAGENT AUTO MICROSCOPY URINALYSIS W ITH MICROSCOPIC Routine 07/21/2019 3:35 PM EST 07/21/2019 08:35:00 PM [facility] RENAL FUNCTION PANEL RENAL FUNCTION PANEL Routine 07/21/2019 3:33 PM EST 07/21/2019 08:33:00 PM [facility] Results ID Date Data Source [id number] 09/01/2020 03:11:24 PM [facility] Name Value Range Interpretation Code Description Data Diane rce(s) Supporting Document(s) Progress Note [facility] [id number] lbm [file] 0K ID Date Data Source [id number] 06/24/2020 02:28:00 PM EST MED[facility] ([facility], ) Name Value Range Interpretation Code Description Data Diane rce(s) Supporting Document(s) Surgical pathology study Laboratory test result MEDENT ([facility], ) FINAL DIAGNOSIS A - Right breast capsule, excision: Fibroadipose and breast tissue. B - Left breast capsule, removal: Benign breast tissue, as well as fibroadipose tissue with reactive changes. Focal infiltration by foamy macrophages is noted. C - Right and left breast implants, removal: Implants. See gross description. 06/28/2020 - 1450 CLINICAL DIAGNOSIS Breast implant status, bilateral 06/25/2020 - 1447 GROSS DIAGNOSIS A - Received in formalin labeled "right breast capsule" are multiple portions of fibrotic and membranous fibroadipose tissue, in aggregate 8 x 3 x 2 cm. No gross lesion is noted, sales solutions representative in one. B - Received in formalin labeled "left breast capsule" is a saccular membranous portion of pink-cano tissue. The diameter is maximally 10 cm. Focal adherent gelatinous materials are noted attached to one aspect of the specimen. A suture is also noted in the same aspect in mid specimen. Biofuels Production Manager sections are submitted in one. -SH C - Received in formalin labeled "right and left breast implant" consists of two breast implants. The right is Allergan style 20, 450 cc, lot #[id number], received intact, measuring 12.5 x 12.5 x 3.5 cm. The left is Allergan style 20, 450 cc, lot #[id number], received ruptured, measuring 12.5 x 12.5 x 2.5 cm. No soft tissue is identified. This specimen is for gross examination only and returned to the operating room after evaluation. -SV 06/25/2020 - 1447 Signed Barrie Boyer MD 06/28/2020 145 ID Date Data Source [id number] 06/19/2020 11:00:00 AM EST [facility] Name Value Range Interpretation Code Description Data Diane rce(s) Supporting Document(s) SARS coronavirus 2 RNA [facility] This lab was ordered by [facility] and reported by [facility]. ID Date Data Source [id number] 03/09/2020 07:01:08 PM EDT [facility] Name Value Range Interpretation Code Description Data Diane rce(s) Supporting Document(s) Progress Note [facility] [id number]/SOSqeRAZlh9NnXKecIPs5OZccAZFtR5JjLJA1jQ8gOLU9VPwYRhBwDzIqJOB1 lbm [file] [id number]== ID Date Data Source [id number] 03/01/2020 05:59:47 PM EDT [facility] Name Value Range Interpretation Code Description Data Diane rce(s) Supporting Document(s) Progress Note [facility] BSTYEt4fGvIKTcEk39/NRLcxDOJyh5ZyCAbnWYt8OKbvMYCwK3ZlJXT2kS9vGJE1PElVPzCoSfXkXGSs lbm [file] ICAgICAgICAgICAgICAgICAgICAgICAgICAgICAgIC AgICAgICAgICAgICAgICAgICAgICAgICAgICAgICAgICAgICAgICAgICAgICAgICAgICAgICAgICAgIA 0KICAgICAgICAgICAgICAgICAgICAgICAgICAgICAgICAgICAgICAgICAgICAgICAgICAgICAgICAgIC AgICAgICAgICAgICAgICAgICAgICAgICAgICAgICAg HVEuVBDrGNScSI0EYQZcVQJmDJLkIAUmSCYmAWHjHNUqKETwXWQmCWFcEKCfONHpNNKuAMDfMRKhHSLf RGDwLHGbZAPiWZHyZXNsVWVxAIGwXIUzQUZqAIQjXJOnOKFyNTDhEOEpKWLyLHZfQYBsLG3ZLPOeKBMb ICAgICAgICAgICAgICAgICAgICAgICAgICAgICAgIC AgICAgICAgICAgICAgICAgICAgICAgICAgICAgICAgICAgICAgICAgICAgICAgICAgICAgICAgICAgIC FvVM4APMDiGITiXITdTUMgKGSpHKGpEEYkFAUgJNZmKJEgXHWaCFJuDCArZDNvAVSsOWYyYPOnRNBrKT AgICAgICAgICAgICAgICAgICAgICAgICAgICAgICAg TZZhCMZpFYVsMAQaKK7QNBHkURGiUARdCPJrDPBhPSHsXEVjVKSsTBYnNKLaFJTzTJGwNUFaXHAmRBOe UOQgLMQnAVJiEQBeDBDzVREvDIZmBQVeBYJxBWGnJPKqKLBtCDApYMPqKKVmSWEsADPiEAAxRE7JEAOd ICAgICAgICAgICAgICAgICAgICAgICAgICAgICAgIC AgICAgICAgICAgICAgICAgICAgICAgICAgICAgICAgICAgICAgICAgICAgICAgICAgICAgICAgICAgIC PcFLAnYK6AUVPvWJOiMKOhGMIaTEDcRBXmRRSlQECjYWRqQBCoFQXjJEFrTAAoLQCoPJRyHPQvXMVyTL AgICAgICAgICAgICAgICAgICAgICAgICAgICAgICAg TWBrXFXcNNOnJVLuQTDjBM9JJRZfUXHsZBUeNJEqMJUzONRkTGYtSXRcDOYoQISmKOLqVYRtWOGrUODt NQGdWWOgSDAkYDRwFGHpQSCcTHIaMNJkLRJdBKZsCNTnVKBhVTNoQDYeXRAwSRBjKMMqJWSlWCNeBH4C YT68lVXyy6B1CCOiXH8lczj/Ck1UGVjlvcUdkHVuZY 7QZgRxQB0vwp8VBnHuRE2ntc5ZNXjFJtLkH1V8nSVzVPCtWUUSAyDkS05pWPcyYc98IUwmVCIfLnEoRS r9Ji6ZLaMjS8vpKYKvNdF2ZEImUsU6ZDGxPcU9AVKjEbIzMAXkIYYvYINmHDRYQGR0BZXoJeLbLEnkOJ 3Jk2KgpFP8YSm+Jt3WMG1jv3OtPChcEJBiIC7uzq3A KVqUNlNaW6XqarB0SRL8FGLxHg3OMRNiFBTdlLYyJiRqDKTNVsMsU2AupF94TCIBXm2+DQplbmRvYmoN StU8LJYxi2CbRJt8MI3YRFByTEn5uUZoXEGzI9Aag2YtRp13SMOsKwyzB6bbvqJlSO1fGFKmEIHZCeCV JHM3ZQvbHQVhScPlIGVfOOpuVVTAWUsQRlMgC7Mfa7 MmMuH2DBTtHfDeOJijUNYrEgD2OD28mLcaEG4WZEChSMOaUC29GUW6BZJySd6XYy2KGxHuMC6cpm5EUd oxVMOzGftJKpi9LXnoHS7HqVJkT4GphFCkz8kHCfHbK4EVTYFgZSFjPp3YVKMcTcLxTCAuEIdiVD8mBB BtKHGZlFbjozN7WK6GKY7csiOfJD2GCqMlJk4vOh4Z AzVpK3IlJ6FzLGRcDEXJIBcdDF9SCSzhAH9dWI9Mu8WKeZEizA4pim8OTKYdEBYyAtials9PNlpgS8V0 gFnlIWRdCrXiFUPRPEjkSM5XGUYaYWE8XLLlEODpNMXGHeDfI94vRM1IU8Bqn37pXrY1QGFtStHgPEuz PJ48cUoytqKjeSFmiJaoTC1YHi3+DQplbmRvYmoNCn cjTBMDGiWoTtdMZrVgIMIkIRZhXXSbPqN1DgPqLb4AOGWcRRKcPBIgSbPyDXFbGXCkAHzkKEAtQCB6GV Z2UUSqCNSzCI7BRgOkMFImKzHfDQtlZIFtEVWoqj0ZDTVbFFVpZPC7ScYuLILoOJRzNPdfGWSzZPK0UY WiWQKsOUZtKE5AYmNnNGDoONW9WSJfNCWfFGYdno3W RQQjJTEiMoluVAJdQVIlFNKtIVnrAYDoSCG4POQ2GUNyIBOeCL0YFqJkXRHpSMCqRaqtWXEaTXPpbj9H UVVnNPXjWTZ6CrJwCKBbMIXyVFywZVHqQWMnLsjgROQdADTkRT9YXqHpJMAuUSK8BYebGYQgQEWjgc6S BYDaBHMyOKpnYSIiYJChWDLbMJcjXNQnZZD5FUB9UH CkKTRlCK2TPlUmCZWuBTW3UIIsLEDdHTJypi9XENDyANBaFwm1OFDeZRXvCWKsSRbjMEZvFSL3LrE3WB FdDADyLK0VIuOyVAHcLYy6ZOSnPYUnCMPeqh9KMNHhXHEbIKQqSOQrEEWrRIXqAJusWAGdMJF8RBp6DV KjIQDrTZ9BWaFlDEMpDXznZSVnGXBwXKHjze9ADPJp LDOfSKT9EDOnYUYfBOEfPQbtMQReREBdQST4AJWgBOFrDR2HAuTkBXJoVzSnRlJzHQDeTPOafs6DLTOw RHEjRYR3EhUaJMVbGLNuSJfqNJEdMJTqLtkeVCMrWNMgHL2XTiFfCHBaScA4LblfEURpVQAvkk1VOTVl HNWyQmy4OMTwNSFeUAYhFSrhPWVuUUMjZJqsGBNlLV BhQR0IUrQlGXXwXjXjXTVnHDPnCYEgeh3QDSJlCOVrJQE3FIRaCQJaIBMiEEinQTXwMLN1Ost5JHCbRZ HrCU3YXmPuJQKfZsL0WIOvQWFjAXCdqw7TMFTjZYAwWPa0DRWsJJRqFZZfOWoiOLBjYCS4FiQaRUIfUA CrZO5FLwBfZHBcKsC0SaTnXVJtQBSehq7UKNJdYDDf CkQ3STWqPLHkJXXdJFz4mtIdiPDlXUd0OA7XF1NltwJhVubZIg5Qy541OFB6KUEtQd0GF0tpQq2wIREq PYEQHp3MKLd7CHBaCFeuWQN1QreyKUJ0FKX6RaViYANsLYF0XWRwU3M+TKg1LEVoJFUaUpvyHZFsBRU2 EnvhNSBuLuK3IONbTrI6LM1rSTDZSg3+FAqufHIqiRncQUTREwI9AVW7COmjMRJQNg0K ID Date Data Source [id number] 11/13/2019 09:29:52 PM EDT [facility] Name Value Range Interpretation Code Description Data Diane rce(s) Supporting Document(s) Progress Note [facility] WPGFUm2sPkJDOfMb99/DPWltMATho5FuEHvbMHe3OOhvGCAiE2FxREY7pQ8rYPQ5TLoPAwGtXkYzVRLe lbm [file] AgICAgICAgICAgICAgICAgICAgICAgICAgICAgICAgICAgICAgICAgICAgICAgICAgICAgICAgDQogIC AgICAgICAgICAgICAgICAgICAgICAgICAgICAgICAg ICAgICAgICAgICAgICAgICAgICAgICAgICAgICAgICAgICAgICAgICAgICAgICAgICAgICAgICAgICAg ICAgICAgDQogICAgICAgICAgICAgICAgICAgICAgICAgICAgICAgICAgICAgICAgICAgICAgICAgICAg ICAgICAgICAgICAgICAgICAgICAgICAgICAgICAgIC AgICAgICAgICAgICAgICAgDQogICAgICAgICAgICAgICAgICAgICAgICAgICAgICAgICAgICAgICAgIC AgICAgICAgICAgICAgICAgICAgICAgICAgICAgICAgICAgICAgICAgICAgICAgICAgICAgICAgICAgDQ ogICAgICAgICAgICAgICAgICAgICAgICAgICAgICAg ICAgICAgICAgICAgICAgICAgICAgICAgICAgICAgICAgICAgICAgICAgICAgICAgICAgICAgICAgICAg ICAgICAgICAgDQogICAgICAgICAgICAgICAgICAgICAgICAgICAgICAgICAgICAgICAgICAgICAgICAg ICAgICAgICAgICAgICAgICAgICAgICAgICAgICAgIC AgICAgICAgICAgICAgICAgICAgDQogICAgICAgICAgICAgICAgICAgICAgICAgICAgICAgICAgICAgIC AgICAgICAgICAgICAgICAgICAgICAgICAgICAgICAgICAgICAgICAgICAgICAgICAgICAgICAgICAgIC AgDQogICAgICAgICAgICAgICAgICAgICAgICAgICAg ICAgICAgICAgICAgICAgICAgICAgICAgICAgICAgICAgICAgICAgICAgICAgICAgICAgICAgICAgICAg ICAgICAgICAgICAgDQogICAgICAgICAgICAgICAgICAgICAgICAgICAgICAgICAgICAgICAgICAgICAg ICAgICAgICAgICAgICAgICAgICAgICAgICAgICAgIC AgICAgICAgICAgICAgICAgICAgICAgDQogICAgICAgICAgICAgICAgICAgICAgICAgICAgICAgICAgIC AgICAgICAgICAgICAgICAgICAgICAgICAgICAgICAgICAgICAgICAgICAgICAgICAgICAgICAgICAgIC ZkGCWeGFe8P0jqAOKwYVUsFD4nPNl7Cd3+DQoNCmVu CFS2rpOklI1BKX3bu1ElPWcyVEQcu0AlQRr7QB9NLUHyGNhiDO8QOXqxta6FVSJgFJKjiQUYw1yvVuTg RCJ7JKGtTsecCV4BKTCaS8yewdXrOHAhABOUIOckEJSRKT6PKrXuF3KxbU96MHEWWd0+DQplbmRvYmoN CdD1VVLhf6ZqOTx2QW9QGCZoOhorv2JhTdYxLAYVZA ddYQ3OWGX3DYL5HVNhDk9MNWNmO858lvVsDP5ZLe6CLxYkHO7atv0SYhMoQESuHquBMzx2ZNkcEK8XwS NpKQnBao7gswXeeePNf5ItboCdzRLXhLYgoqImZYHVIWBhwJlkUGRdCOOyHW8zFS0zMNZvEJRmBzDrGT YISO4WFVNhAPRmgLNkHTEcRCYKSO7SQOjcYAK7XWJn lbVcuHIoEZwaSU1IYCZpgsIlYiQpFLCOSEc+Ea0HPA2yv4CoAIcrNzCtII9rnx8YSZnYKzHmT4E1cLMq L5R7GSawMy7JPTRpEPYfEzGqPTERQXbxNI6BGJ6nwdU7WB5WlFQbFPIvOATjiASgKWy1N78doJPpGXeq ZD1BIJZ+Reuben+Qj9JHKUzCXQsSRMxHaJbQIAZVeRbZ6 GpC0UFx5DgL6YfWC84qFibrhRnRHfjDT1PSZ2xRJOrXDTVNM0PqOXqyV4cfxQrLKLpYCCPRqHsU81ldG NkJSWnNJAqLEBsEo7ZKVWgZ9CupeMgmIhjwdLmGTLzMTAIEM2JUUkmgyNwrIRxuVtgFQ40wZtrQI8XSr 1YDzGnIE7gkw6CgLUvNh2LZREtDl7HURQcIQSlIRAc BBF2WQJjQkPjGCtcDGLoWOEwIDN7LYOmZKBkKJ9OKjDwWYPaBkLaORarEYApKXOjaq2MFVVoQHIgYrt6 TAWuMJGoYASmVTbhBTTwJRNeNNN3JRMtRFJjZX0EEvGyCEHzZOGwXlveQZCeDUTqmm8WURHdFGEgMCC7 MwKlUYHcABEiHSxlOONnCJG4InYcJQLiFTSfRL1COm YtVLCwOHX2AcZdSZDfGSMzcf0SCNQqYNAsIer4IwOvCUJuZTYwSCpgLQXhPMC4BAm4MGBoRDIbJV9LKl XlFSMxJBstBpRzNCDiCIDpor8QIBWnKCBhQQNrYGWySVMlQSJxZTprQJEpCZG1ZRVmAAAnWICvHG2TRw PhDXSsIJn9ITzxMQIaWXDlph7RWHMuUQJjNGk3OEWr ZQKdNJGcFIghXDDhFFBlJqqbUZZmJIJyBR5UOmElWUHhVzF8CNgfYIIjJTZsss1XIPYaJTAiEFgbUKVo WBSwVPCiDLctHSShIBWfKIf5MZIdBXQzTS3IUjLdPXAsLxL7ZkmhGUVmSZLkka3JWVZhUGFkFbBuQJIq YXDwRAWpCRezNLWrGWDsZUc3HBTsOOGrKK7UCkAdSH EoUpW0CQOoDJEgPHKdtc9QDXOuEHSmHMU2YNDySUYeVBZyWJxuUIWaDQA7TGR6PEZsVAJgOR0LSmMsVI HkIiGuAtisFBVfKPHwmt3SbMFuvCjxks4EMDjPUx8UqFwlWVX2HUvxDc1riGYqNwCjKPUQMf3TbcLnAU ZoQKJRUTkiOIYqTDRoQwsdXUCeIxj9EyNxQTE8Coh3 E3DaKme0LfF6HUNcDtQ6ZZSmDIN2ZrVjYCspOWIwNKu5DZIrKOX2RRw6GuJoASE+TI4uSIt+Bt7Vs0Cs ygH8twUsYVwxKAMsZu2HBLTOG7WJFg== ID Date Data Source [id number] 07/24/2019 01:38:15 PM [facility] Name Value Range Interpretation Code Description Data Diane rce(s) Supporting Document(s) Progress Note [facility] PCCGXv9lXkLSPfMl86/LOMrvPWJbk0IxOKusWQd6ATuzESLyV3BwCKD3sD6bKIY8WTzOXdXwVmBuWEEf lbm [file] AgICAgICAgICAgICAgICAgICAgICAgICAgICAgICAgICAgICAgICAgICAgICAgICAgICAgICAgICAgIC GwVHOiYRJqIFPqFZDcNIDxCLJxAC3VEZGvHCBuJUPpDSFkZTAoVXNuDCMjDKYrXTOhRMJeDUSlCCIrOV AgICAgICAgICAgICAgICAgICAgICAgICAgICAgICAg PIBrPLWcCHEmUCVgXNXuTNUpJNShBOTuAEQyZWEsYR7XDRIlGHNwSMLrRBYjCFIbTNTiZLWbOOCjCWYa ICAgICAgICAgICAgICAgICAgICAgICAgICAgICAgICAgICAgICAgICAgICAgICAgICAgICAgICAgICAg ZLZxPBQxXPFzFUAySA4BXFFbEKLfPHAySZYqOBDcRT AgICAgICAgICAgICAgICAgICAgICAgICAgICAgICAgICAgICAgICAgICAgICAgICAgICAgICAgICAgIC DqXIRmMSAtOMSnVRPrJZNnPCAbUAZfEG4DWZTvIWFzEEGxWRGvBBDdTYWlMZRnUBOzECAbWOKqZZLkMX AgICAgICAgICAgICAgICAgICAgICAgICAgICAgICAg UACdHLXtFQVfWGVzOXQcQOLsJPSoBNTiPSAqLYNcEWAzZF2YJXLtSSMtCQAlQWWeOWKfPRBoOIUjSNRf ICAgICAgICAgICAgICAgICAgICAgICAgICAgICAgICAgICAgICAgICAgICAgICAgICAgICAgICAgICAg TFUvEHXbUJYsNVYyNPBfGC2TJZCrYUHfUCYuMMAeCV AgICAgICAgICAgICAgICAgICAgICAgICAgICAgICAgICAgICAgICAgICAgICAgICAgICAgICAgICAgIC SgJTVrLSXwLMOoWMBeMVLzLXAuZCTwMZIiYE8CVUAcJDCmTRQqBONdLWIpXDHbKZPfUITmSWWxQIFkEP AgICAgICAgICAgICAgICAgICAgICAgICAgICAgICAg CATaNKZiGKIyYYMrFIBzNIAaYIQkNBDyFBPwAAReQPLfOMOyBX0ZLCPzFNHaETCdHFKzACMaMLAkGZDj ICAgICAgICAgICAgICAgICAgICAgICAgICAgICAgICAgICAgICAgICAgICAgICAgICAgICAgICAgICAg DBXeXTTnLDSnLPNhWIYkQEVgAO4RIFUxMCRaWARuPG AgICAgICAgICAgICAgICAgICAgICAgICAgICAgICAgICAgICAgICAgICAgICAgICAgICAgICAgICAgIC LuCMSsMNNoWCPyKIFkOWPgJJEaOBKsLSQrBGGsTM2JFN10sSYzk1L8WVXxZT0zjui/If3CBQnglsWizK ToRV2BAaGzEA3isf3SRnWoIY8prt4YCHpODaCwH0A2 tUVqDZNxLGHEWkVrY98lDIcbRh55UNivKDYiHoDvOSo2Wr7CFtRiW5heNCQmGbF2GLLxSuE3JVEnAjP2 PQLlHnAcWRPpIRFaEWVbBJHVTDL0NKCgQeFmWjEnOVQzXP5SUYNxL411pcDrWx3CFa6MVzMdYZ1yie3R QzNeFEOcUucRDdo3KBirCJ8YeADluZPeWCIiTVHKQa BsH0gyf2WoCeKgURBVVHarSD8Gx3TtmEFkSUx+Dq9MQR7ug5NoLKuqDSIkPZ7epf6RVGvHLiPqD6QuaA feFPYhi6tkQNLrRH4ukACfKWI7OIG2q0SwbdLfGRHsnYViGCLLDjCPJUB7PVUgVfBvAkExLDcdNCS8Wx DeDB8zXTztDO0LAGZ4CKfcJFClVJJaR5vIPeZaEQDq UFCqkSmjLS9AOhZfL4GocbBooIOzOQThEWVIHz4+VWiilmQyVcuBZqJ9YDTrt8SdOVe6OR1STJRxURvc IE8AAQIdkG8bRXqaVG2SZzQtTvLuTTHJTeWiB71avEDbEOd6B4GvLfKkVWQyJvzoBJCqMHtaHbMxMLUt WyBdDQogID4+ID4+SLdaIE9QFZaqgdIwYEGaSt7NVQ KwSBVvVZ1mTITyQVIuZ7C2pGgoHAXXMoDbS7sbtdlbLA1pZUHtD595wXpjrtAjWXE7UUIsCp3DTJLlBO I6UCPubWEcBmSlCEVAYGjrCW7MlHKaXBH8dJ1eZNdeCDHiXABwZ0pYOiXgdNnsDO69nOevtsJwfMBpFZ o+Dn6NNL9hv4IyTTu3lcShXCjoECY3LLdiSNGqLUNr CVHsSMB2KRG3GGDCZaFdOAOxMZIhOWtaVLAoSWZugw8PDUPfSXJ8OQM2THSvKFCaNEMdPRmeMKUmPLUl Mpi8NVEvWCRyTS1TIrMrPJSrWLIrKOssTFCwPWBbvo2KDLFtTQVoVvo9MgGmLMTtHZYgJPiwSUWyZAT8 EAe6PGAdUZQhQD1NCvWtIEIxMLcrFMVeJLQeRJYdmm 3AXAYaSKYaIPJ1UeLsUGHyOKNrTNiaTHFvZHRmBQGrKLOrCWHkHW9RGgPpBESmEWB5BhGgUTBiAUSqss 2NICMtWCGdKiI6NoRpHMLnOCJgFAtdLUOuBOOaVtshVHDcHLOxFK3PMyDmUOQlNCD0StNgFZZbYJTwdg 2YIHJoLEYzJsGoPDJdTIJrLAWdJDmbSOCpDJX5UMU6 XZAeIWFvVY9GGvNrZIXyTqDtUHLlOHXdYBUymh1FSDLrZBDyUKxdRkWvDLKlJTQsJWzvTIXaIIKqYXBl RQSzMIIiZP9JAsHwGQLsIyQfGBQbWWGmQOApiv8NHLFpYOFyZgH1EROxTIOvWGHsTZceGUGkYXYbYmgg QHHoAHFuTA9UDnQtZDZmUaOhFZSaQGYdOWCpsb1UAJ OkMMXzDSP5PsPfECIoJGCtZXacXWDaSHO9EjQpTVVyJEIcIT4JIlUgTQLwAZM1FEzhQXJxPQMwup4IFX XcXNI4JrZoGZFiAZDrGQXqJBveVEJtPTN7StO4CLYzBXMaRN6GGdAtTXHlRKi4LOXeHGMsTBQzbo0UUL XvPTH1FBrsPeEpWCLkSKWyQSieZTJcBED3ZvaoCSFy LCPrFE6TBgDqILIrTKz4XGdjWOKxTFMpoe8FLEIdZZH5DYTzDsLiKODfMZHwFTpgMQDmDWImHLF4LPAm HNFjQK1TBoNlMBZqBjD6McYgRPBxDMIwvb0KWSNfJKF1CoSnZhSqDFKcNNXaBWfnLLFfDTRdKVE2PBYs WAVgEE6GUeCeNBroISDPTfs6FElhX3j6YEFoQx3CY0 Peq4WfIaLgMYNHUSrwRK6okzIhNSOgSw2SJ4aAYohgOOP0EkDwNVF9LZFaSvF0Kxo2ONc7MCw9VDS7XM L8LF8pQYIpJnMrZKS0MooyQNB5MXGsBqMsCrj7FcG0ATWxLfrwCrTyWW8HXp5QFqZ4TCD3oCKeOd6RLw TiWEdUHbDlNQ8KJXx= ID Date Data Source [id number] 07/21/2019 05:17:58 PM [facility] Name Value Range Interpretation Code Description Data Diane rce(s) Supporting Document(s) Color of Urine [facility] Clarity of Urine [facility] Specific gravity of Urine by Refractometry automated 1.020 1.003 -1.030 [facility] pH of Urine by Automated test strip 5.0 5.0-8.0 [facility] Protein [Mass/volume] in Urine by Automated test strip Neg [facility] Glucose [Mass/volume] in Urine by Automated test strip Neg [facility] Ketones [Mass/volume] in Urine by Automated test strip Neg [facility] Bilirubin.total [Presence] in Urine by Automated test strip Negative [facility] Hemoglobin [Presence] in Urine by Automated test strip Neg [facility] Leukocyte esterase [Presence] in Urine by Automated test strip Negative [facility] Nitrite [Presence] in Urine by Automated test strip Negati [facility] Leukocytes [#/area] in Urine sediment by Automated count 2 /HPF 0 -5 [facility] Erythrocytes [#/area] in Urine sediment by Automated count 3 /HPF 0-3 [facility] Epithelial cells.squamous [#/area] in Urine sediment by Auto mated count 16 /HPF None [facility] Mucus [#/area] in Urine sediment by Microscopy low power field None [facility] ID Date Data Source [id number] 07/21/2019 07:00:44 PM [facility] Name Value Range Interpretation Code Description Data Diane rce(s) Supporting Document(s) Protein [Mass/volume] in Urine 13 mg/dl [facility] Creatinine [Mass/volume] in Urine 210.8 mg/dL [facility] Protein/Creatinine [Mass Ratio] in Urine 0.06 mg/mg{creat} [facility] ID Date Data Source [id number] 07/21/2019 05:32:[address] [facility] Name Value Range Interpretation Code Description Data Diane rce(s) Supporting Document(s) Albumin [Mass/volume] in Serum or Plasma by Bromocresol green (BCG) dye binding method 4.1 g/dL 3.5-5.2 [facility] Sodium [Moles/volume] in Serum or Plasma 135 mmol/L 136-145 L [facility] Potassium [Moles/volume] in Serum or Plasma 4.4 mmol/L 3.4-5.1 [facility] Chloride [Moles/volume] in Serum or Plasma 99 mmol/L 98-107 [facility] Bicarbonate [Moles/volume] in Serum 24 mmol/L 22-29 [facility] Glucose [Mass/volume] in Serum or Plasma 71 mg/dL 70-140 [facility] Urea nitrogen [Mass/volume] in Serum or Plasma 20 mg/dL 6-20 [facility] Creatinine [Mass/volume] in Serum or Plasma 1.74 mg/dL 0.50-0.90 H [facility] Calcium [Mass/volume] in Serum or Plasma 9.3 mg/dL 8.6-10.0 [facility] Phosphate [Mass/volume] in Serum or Plasma 4.7 mg/dL 2.5-4.5 H [facility] Glomerular filtration rate/1.73 sq M pre dicted among non-blacks [Volume Rate/Area] in Serum or Plasma by Creatinine-based formula (MDRD) 39 mL/min/1.73m2 >60 L [facility] Glomerular filtration rate/1.73 sq M pre dicted among blacks [Volume Rate/Area] in Serum or Plasma by Creatinine-based formula (MDRD) 45 mL/min/1.73m2 >60 L [facility] Procedure Social History Code Duration Value Status Description Data Source(s ) Alcohol intake 09/01/2020 12:00:00 AM EST Current non-d florencio of alcohol (finding) completed Current non-drinker of alcohol (finding) [facility] Tobacco use and exposure 09/01/2020 12:00:00 AM EST Never used co mpleted Never used [facility] Smoking 09/01/2020 12:00:00 AM EST Never smoker completed Never s moker [facility] Alcohol intake 03/09/2020 12:00:00 AM EDT Current non-d florencio of alcohol (finding) completed Current non-drinker of alcohol (finding) [facility] Alcohol intake 11/11/2019 12:00:00 AM EDT Current non-d florencio of alcohol (finding) completed Current non-drinker of alcohol (finding) [facility] Smoking 11/11/2019 12:00:00 AM EDT Never smoker completed Never s [facility] Alcohol intake 07/21/2019 12:00:00 AM EST Current non-d florencio of alcohol (finding) completed Current non-drinker of alcohol (finding) [facility] Smoking 07/21/2019 12:00:00 AM EST Never smoker completed Never s [facility] Vital Signs ID Date Data Source UNK Name Value Range Interpretation Code Description Data Source(s) Body surface area Derived from formula 1.56 m2 1.56 m2 [facility] ([facility]) Body weight 54.432 kg 54.432 kg [facility] ([facility]) Premium body weight 115 [lb_av] 115 [lb_av] [facility] ([facility]) Body mass index (BMI) [Ratio] 21.3 kg/m2 21.3 k g/m2 [facility] ([facility]) Body weight 120.00 [lb_av] 120.00 [lb_av] [facility] ([facility]) reported Body height 63 [in_i] 63 [in_i] [facility] ([facility]) 5'3" Body temperature 99.1 [degF] 99.1 [degF] [facility] ([facility]) Respiratory rate 14 /min 14 /min [facility] ( [facility]) Heart rate 84 /min 84 /min [facility] ([facility]) Diastolic blood pressure 82 mm[Hg] 82 mm[Hg] [facility] ([facility]) Systolic blood pressure 138 mm[Hg] 138 mm[Hg] [facility] ([facility]) Body surface area Derived from formula 1.60 m2 1.60 m2 [facility] ([facility]) Body weight 58.231 kg 58.231 kg [facility] ([facility]) Premium body weight 115 [lb_av] 115 [lb_av] [facility] ([facility]) Body mass index (BMI) [Ratio] 22.7 kg/m2 22.7 k g/m2 [facility] ([facility]) Body weight 128.38 [lb_av] 128.38 [lb_av] [facility] Body height 63 [in_i] 63 [in_i] [facility] ([facility]) 5'3" Oxygen saturation in Arterial blood by Pulse oximetry 98 % 98 % [facility] ([facility]) Heart rate 72 /min 72 /min [facility] ([facility]) Diastolic blood pressure 66 mm[Hg] 66 mm[Hg] [facility] ([facility]) Systolic blood pressure 108 mm[Hg] 108 mm[Hg] [facility] ([facility]) Body surface area Derived from formula 1.63 m2 1.63 m2 [facility] ([facility]) Body weight 60.556 kg 60.556 kg [facility] ([facility]) Premium body weight 115 [lb_av] 115 [lb_av] [facility] Body mass index (BMI) [Ratio] 23.6 kg/m2 23.6 k g/m2 [facility] ([facility]) Body weight 133.50 [lb_av] 133.50 [lb_av] [facility] Body height 63 [in_i] 63 [in_i] [facility] ([facility]) 5'3" Body temperature 97.9 [degF] 97.9 [degF] [facility] ([facility]) Respiratory rate 16 /min 16 /min [facility] ( [facility]) Heart rate 80 /min 80 /min [facility] ([facility]) Diastolic blood pressure 74 mm[Hg] 74 mm[Hg] [facility] ([facility]) Systolic blood pressure 122 mm[Hg] 122 mm[Hg] [facility] ([facility]) Body surface area Derived from formula 1.64 m2 1.64 m2 [facility] ([facility]) Body weight 61.236 kg 61.236 kg [facility] ([facility]) Premium body weight 115 [lb_av] 115 [lb_av] [facility] ([facility]) Body mass index (BMI) [Ratio] 23.9 kg/m2 23.9 k g/m2 [facility] ([facility]) Body weight 135.00 [lb_av] 135.00 [lb_av] [facility] ([facility]) Body height 63 [in_i] 63 [in_i] [facility] ([facility]) 5'3" Body temperature 98.0 [degF] 98.0 [degF] [facility] ([facility]) Respiratory rate 16 /min 16 /min [facility] ( [facility]) Heart rate 68 /min 68 /min [facility] ([facility]) Diastolic blood pressure 74 mm[Hg] 74 mm[Hg] [facility] Systolic blood pressure 118 mm[Hg] 118 mm[Hg] [facility] ID Date Data Source [id number] 09/01/2020 03:11:24 PM [facility] Name Value Range Interpretation Code Description Data Source(s) WEIGHT RECORDED 126.2 lb 126.2 lb [facility] Body height Measured 62.99 in 62.99 in [facility] Patient Treatment Plan of Care Planned Activity Planned Date Details Description Data Source (s) Albuterol Sulfate HFA 108 (90 Base) MCG/ ACT Inhalation Aerosol Solution (PROVENTIL HFA) 08/31/2020 12:00:00 AM [facility] thyroid (HALFWAY) 90 MG Oral Tablet [[place] [facility]] 08/21/2020 12:00:0 0 AM [facility] Albuterol Sulfate HFA 108 (90 Base) MCG/ ACT Inhalation Aerosol Solution (PROVENTIL HFA) [facility] MG Delayed Release Oral Tablet 05/01/2 019 12:00:00 AM EDT [facility] Levothyroxine Sodium 0.15 MG Oral Tablet [Synthroid] 019 12:00:00 AM [facility] Sulfamethoxazole 800 MG / Trimethoprim 160 MG Oral Tab let 06/24/2018 12:00:00 AM [facility] ospital
[2020-09-05] MEDS ORDERED: ADDE10CA3 PO (17:11)
[2020-09-05 17:22] LABS: BASO # 0.1 10^3/uL (0.0-0.2); BASO % 1.1 % (0.0-1.0); EOS # 0.1 10^3/uL (0.0-0.5); EOS % 1.8 % (0.0-3.0); HEMATOCRIT 40.5 % (36.0-47.0); HEMOGLOBIN 12.7 g/dl (12.0-15.5); LYMPH # 2.1 10^3/uL (1.5-5.0); LYMPH % 28.4 % (24.0-44.0); MEAN CORPUSCULAR HEMOGLOBIN 30.3 pg (27.0-33.0); MEAN CORPUSCULAR HGB CONC 31.4 g/dl (32.0-36.5); MEAN CORPUSCULAR VOLUME 96.7 fl (80.0-96.0); MONO # 0.7 10^3/uL (0.0-0.8); MONO % 8.8 % (2.0-8.0); NEUTROPHILS # 4.4 10^3/uL (1.5-8.5); NEUTROPHILS % 59.8 % (36.0-66.0); PLATELET COUNT, AUTOMATED 226 10^3/uL (150-450); RED BLOOD COUNT 4.19 10^6/uL (4.00-5.40); WHITE BLOOD COUNT 7.4 10^3/uL (4.0-10.0)
--- OUTSIDE RECORDS SUMMARY | 2020-09-05 17:42 | CCD ---
Author Author [facility] Organization [facility] Address Unknown Phone Unavailable Care Team Providers Care Hat Renovator Name Role Phone Telma H R Gilbert [...] E RAY DO Unavailable Unavailable GONZALES, E RYA DO Unavailable Unavailable GONZALES, E RAY DO [...] is protected by Article 27-F of the [facility] Public Health law. If you continue you may have access to information: Regarding HIV / AIDS; Provided by facilities licensed or operated by the [facility] Office of Mental Health; or Provided by the [facility] Office for People With Developmental Disabilities. If such information is present, then the following [facility] mandated warning applies: This information has been [...] law may result in a fine or alf sentence or both. A general authorization for the release of medical or other information is NOT sufficient authorization for further disc losure. Family History Family Member Name Family Member Gender Family Member Status Date o f Status Description Data Source(s) Unknown Unknown Problem [facility] ([facility]) Unknown Male Problem [facility] ([facility] ) Encounters Encounter Providers Location Date Indications Data Source(s ) Outpatient Attender: Moris Virk MD [id number] 2020 12:00:00 AM EST - 08/31/2020 01:59:38 PM EST [facility] Sarcoidosis, unspecified Office Visit Attender: RAY Wilks/Marcin/Artur/Reind l 07/02/2020 09:15:00 AM EST [facility] ([facility] Office Visit Attender: RAY GONZALES Wilks/[place]/Artur/Reind l 06/28/2020 09:15:00 AM EST MED[facility] ([facility] ) Outpatient Attender: RAY COFFMANMarlen Wilks/[place]/Artur/Reind l 04/05/2020 08:30:00 AM EDT MEDENT ([facility], ) Outpatient Attender: Moris Virk MD [id number] 03/09/2020 12:00:00 AM [facility] Outpatient Attender: Gilbert Hollis MD [id number] 03/01/2020 12:0 0:00 AM EDT Chronic kidney disease, stage 3 (moderate) [facility] Chronic kidney disease, stage 3 (moderat e) Outpatient Referrer: Prashant Gupta MD 12/03/2019 04:18:00 P [facility] Outpatient Attender: Moris Virk MD [id number] 2019 12:00:00 AM EDT - 11/11/2019 12:42:11 PM [facility] Outpatient Referrer: Prashant Gupta MD 10/21/2019 06:03:00 A M [facility] Outpatient Referrer: Prashant Gupta MD 08/11/2019 05:54:00 A M [facility] Outpatient Referrer: Prashant Gupta MD 07/31/2019 02:10:00 P M [facility] Outpatient Attender: Derrick Rogers MDReferrer: Rod Deluca [id number] 07/21/2019 12:00:00 AM EST - 07/21/2019 03:17:50 PM [facility] Outpatient Attender: Derrick Rogers MD 07/21/2019 12:00:00 A M [facility] Medications Medication Brand Name Start Date Product Form Dose Route Admi nistrative Instructions Pharmacy Instructions Status Indications Reaction Description Data Source(s) Albuterol Sulfate HFA 108 (90 Base) MCG/ ACT Inhalation Aerosol Solution (PROVENTIL HFA) 7600-1338-15 08/31/2020 12:00:00 AM EST 2 {puff} Inha lation active Mild intermittent reactive a irway disease without complicationSarcoidosis Inhale 2 puffs into the lung s every 6 (six) hours as needed for Wheezing [facility] 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 Sarcoidosis thyroid (RETIREMENT) 90 MG Oral Tablet [[place] Thyroid] [place] Thyroid 90 MG Oral Tablet [place] Thyroid 90 MG Oral Tablet 08/21/2020 12:00:00 AM EST active [facility] Docusate Sodium 100 MG Oral Capsule [Colace] Colace 05/2020 12:00:00 AM EST ORAL active MEDENT ( [facility], ) Albuterol Sulfate HFA 108 (90 Base) MCG/ ACT Inhalation Aerosol Solution (PROVENTIL HFA) 2089-2924-22 02/27/2020 12:00:00 AM EDT 2 {puff} Inha lation aborted Inhale 2 puffs i nto the lungs every 6 (six) hours as needed for Wheezing [facility] Mycophenolic Acid 180 MG Delayed Release Oral Tablet mycophenolic acid (MYFORTIC) 180 MG delayed-release tablet mycophenolic acid (MYFORTIC) 180 MG delayed-release tablet 11/20/2018 12:00:00 AM EDT 180 mg Oral active Take 1 tablet by mouth Two Times Daily [facility] Levothyroxine Sodium 0.15 MG Oral Tablet [Synthroid] S YNTHROID 150 MCG tablet SYNTHROID 150 MCG tablet 09/27/2018 12:00:00 AM EST aborted [facility] Sulfamethoxazole 800 MG / Trimethoprim 1 60 MG Oral Tablet sulfamethoxazole- trimethoprim (BACTRIM DS,SEPTRA DS) 800-160 MG per tablet sulfamethoxazole- trimethoprim (BACTRIM DS,SEPTRA DS) 800-160 MG per tablet 06/24/2018 12:00:00 AM EST aborted [facility] Insurance Providers Payer name Policy type / Coverage type Policy ID Covered democrat ID Covered democrat's relationship to arce Policy Arce Plan Information [facility] [id number] SP [id number] OTHER B [id number] Self [id number] [facility] [id number] Self [id number] OTHER B [id number] Self [id number] 'S ADMINISTRATION [id number] SP [id number] [facility] ACTIVE DUTY [id number] SP [id number] OPTUM [place] O [id number] S [id number] VA [facility] OPTUM [id number] SP [id number] [facility] [id number] SP [id number] WEST O [id number] S [id number] VA/136E O [id number] S [id number] 'S ADMINISTRATION [id number] SP [id number] OTHER B [id number] Self [id number] OTHER B [id number] Self [id number] [employer] EAST REG O [id number] S [id number] East 2018 Commercial [id number] Self [id number] East Referrals Commercial [id number] Self [id number] East Referrals Commercial [id number] Self [id number] EAST ACTIVE DUTY [id number] SP [id number] East Referrals Commercial [id number] Self [id number] East Referrals Commercial [id number] Self [id number] U [id number] Self [id number] U [id number] Self [id number] EAST [employer]MA[employer] - O/P [id number] 18 [id number] BA [facility] [id number] Problems, Conditions, and Diagnoses Code Display Name Description Problem Type Effective Dates Data Source(s) J45.20 Mild intermittent asthma, uncomplicated Mild intermittent asthma, uncomplicated Diagnosis 08/31/2020 01:11:14 PM EST [facility] 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 Other chronic tubulo- interstitial nephritis Diagnosis 03/01/2020 12:00:00 AM EDT [facility] N18.3 Chronic kidney disease, stage 3 (moderat e) Chronic kidney disease, stage 3 (moderate) Diagnosis 03/01/2020 12:00:00 AM [facility] Surgeries/Procedures Procedure Description Date Indications Data Source(s) MASTOPEXY 06/24/2020 12:00:00 AM EST Eloy CAM ([facility], ) PERIPROSTHETIC CAPSULECTOMY BREAST 06/24/2020 12:00:00 AM RAFA COHEN ([facility], ) URINE RANDOM TP/CRE RATIO URINE RANDOM TP/CRE RATIO Routine 07/21/2019 3:35 PM EST 07/21/2019 08:35:00 PM [facility] URNLS DIP STICK/TABLET REAGENT AUTO MICROSCOPY URINALYSIS W ITH MICROSCOPIC Routine 07/21/2019 3:35 PM EST 07/21/2019 08:35:00 PM [facility] RENAL FUNCTION PANEL RENAL FUNCTION PANEL Routine 07/21/2019 3:33 PM EST 07/21/2019 08:33:00 PM [facility] Results ID Date Data Source [id number] 09/01/2020 03:11:24 PM [facility] Name Value Range Interpretation Code Description Data Diane rce(s) Supporting Document(s) Progress Note [facility] INTCPr8vCeLSWjIn46/JBPwcLDAac8TbXJfiZJt7QAybYMJrY8JuGHN8kI1zNJP5FZzFOfDnVpNsZuJx lbm [file] 0K ID Date Data Source [id number] 06/24/2020 02:28:00 PM EST MEDENT ([facility], ) Name Value Range Interpretation Code Description Data Diane rce(s) Supporting Document(s) Surgical pathology study Laboratory test result MEDENT ([facility], ) FINAL DIAGNOSIS A - Right [...] 2 cm. No gross lesion is noted, help desk representative in one. B - Received in formalin labeled "left breast capsule" is a saccular membranous portion of pink-cano tissue. The diameter is maximally 10 cm. Focal adherent gelatinous materials are noted attached to one aspect of the specimen. A suture is also noted in the same aspect in mid specimen. Chief Drafter sections are submitted in one. -SH C - Received in formalin labeled "right and left breast implant" consists of two breast implants. The right is Allergan style 20, 450 cc, lot #[id number], received intact, measuring 12.5 x 12.5 x 3.5 cm. The left is Allergan style 20, 450 cc, lot #[id number], received ruptured, measuring 12.5 x 12.5 x 2.5 cm. No soft tissue is identified. This specimen is for gross examination only and returned to the operating room after evaluation. -SV 06/25/2020 - 1447 Signed Barrie Boyer MD 06/28/2020 145 ID Date Data Source [id number] 06/19/2020 11:00:00 AM EST [facility] Name Value Range Interpretation Code Description Data Diane rce(s) Supporting Document(s) SARS coronavirus 2 RNA [facility] This lab was ordered by [facility] and reported by [facility]. ID Date Data Source [id number] 03/09/2020 07:01:08 PM EDT [facility] Name Value Range Interpretation Code Description Data Diane rce(s) Supporting Document(s) Progress Note [facility] YXCXBh0kPoRURjEn29/ZDIjcKDRbc0ImGOvwIRu8WOioBWYpR7FuITY6nK6uYRW6UWdKXmOtKrFdQTA0 lbm [file] DsZMosTjU3Eh3TSQKNX1DPYs== ID Date Data Source [id number] 03/01/2020 05:59:47 PM EDT [facility] Name Value Range Interpretation Code Description Data Diane rce(s) Supporting Document(s) Progress Note [facility] SQDWMu7dOhCIMtRq61/XPIycHWAjz5YdXDbfMVz9VFwtPJYeW6UtMMZ5eH8sHVW8OPfWIhXnVmMhHTJk lbm [file] ICAgICAgICAgICAgICAgICAgICAgICAgICAgICAgIC AgICAgICAgICAgICAgICAgICAgICAgICAgICAgICAgICAgICAgICAgICAgICAgICAgICAgICAgICAgIA 0KICAgICAgICAgICAgICAgICAgICAgICAgICAgICAgICAgICAgICAgICAgICAgICAgICAgICAgICAgIC AgICAgICAgICAgICAgICAgICAgICAgICAgICAgICAg HCCmHXUdMMViXP5TGVKrEJDrBJLkPDGpMJTxGWCaQJCaPQHxOFFuOIGfPDKkQAQrPLRhWLRiDJFaHKNd OYCzTCMfIPIzPXGtBZYuYCZsJUCqSQXnAWDyQXHzBJDqMWKiPSUmUXTmEUHaDFNcXJFjZT7WZAFpRPNl ICAgICAgICAgICAgICAgICAgICAgICAgICAgICAgIC AgICAgICAgICAgICAgICAgICAgICAgICAgICAgICAgICAgICAgICAgICAgICAgICAgICAgICAgICAgIC YkQW5XNWQoRJQtRKRlYTImZPNzSACtPDCyKPIaXVSxMNMtUNKsCBHsANGmZRBcKIGoDYPwBLXwWPInCE AgICAgICAgICAgICAgICAgICAgICAgICAgICAgICAg ATByDPNfLQPdTLLmKF3RESCoKESnPVRpGGLhXQUcHAKwYMJdMLNmWOAvNVXcVFRyOZTrCOQyKDIaBATm KMTiNDQqHMXwADVdGZMyNWRkUPPhFPBkXTPgRPSuEDJxGNNiQGAzYEZaNLDeLCBlLUTaDCBdUT4UEKBe ICAgICAgICAgICAgICAgICAgICAgICAgICAgICAgIC AgICAgICAgICAgICAgICAgICAgICAgICAgICAgICAgICAgICAgICAgICAgICAgICAgICAgICAgICAgIC VnEPEuIZ5PEOEfYVXiLLWsHMPhHQShAQFwBZEfZSEgZHLiXPBlFGPgZUKsAOSqPJLtVFKsKEUcXFIrCK AgICAgICAgICAgICAgICAgICAgICAgICAgICAgICAg NEQeYFQfJWJkFDRoEWWoQJ5FNQLvYOByCRMsPCLlSKTnZBKzAVPaIEFaLPAiHMPxNUGgXOYdITDcPFHr EKCdKUEtSMAtGNWrTCEqBQTlLIDbXTSxRWLbIEBzJEVwTLCrFSMlIZPuVMGvSQZlRWTjOILuOSQcSG0O GH99eLJxf4N6STOyPC7bwaw/Lp2OMVbiueDcwCJxHC 2IBcGdTR2azq9EZtPnGY1bjh0KWFiGEwLkR3W0lEIcXKJkEUBUIpBlI44fQTjmZk43GUucWAAjHbCuYY c3Wq9APsAoK9iwTNZbFkO2HXNwIzG2CWNuLhR4LIGfKtUfMKRnUVNmDGHeTXRGLAV6RAEdYsFqQWuyGK 6Ay9NqgWL7SFq+Ei2WHZ7wc2CtHYneAISvGT1wta6E EToQZvVpS6UpvqB2ETT7YVOnBf3DQWDmOXUbtUEtIiKwMQFUOiZyU3ZepO37SFOYEb4+DQplbmRvYmoN OcQ2FDIgo9EhHYk2PH7QFVCrWHh8bTUkKSAuC4Itp9HdFx04YPTcEaxjE3bcukJmWF1jXMAiQLQPMmQH MLZ0PMbfHZXtXuZgFOXqXKmwNJZCSFcWLcHgN4Ahg7 WyEtJ5SWUxOvGwMNorXYHjAxU4CX64vZesRA1QRLUyCJTjEU22FYA6WZTmQr7JFp2YDwJbPB6hnz7OHw ihRCXqPbkPBid4UEcrPQ9ZgKTsI0RlmMDnh6dTCrGhQ9JCMOZxBVSvHx0YGBQqTkIxPWJbTKhlZU7rND BzXDCDjKaeeuB0KM3ROI0msjOpJF6TWoTxDa1nUh1U PnEtH3DtI8UvVIWjLEGCAFacXS1ARNjiRG4lJZ8Zc0RGwVErzZ6coq7USGTwXGUkRjsegp8ARcbsA3D8 tSxwJKUsOxRoVSQQPVslBM5FFZSdXQD7KWSjLJEdMLAOOtJhX75yPP2LU9Gxl91zUtJ0ETLkMxZmMFww PS79tSswldOcgUPscIppCW3RFa5+DQplbmRvYmoNCn neNGSGEkRbOmjRVqVySTToGGZiIALbQcP7PoJnTe4KYGEkWYFfUVIzRkJbVXKfEQSkPTnsQUFhMGQ5ZV G6VLKzOCQjJN9GXoSyCYLtZwAhMUeyFEJaOJAhbj8DNHTlRAEjDBL8PzEkWNVmEXMfCUjmRPDiSOT0XT NiUJIpYNCwQJ6CMhYrDYMwKPG7RGGuMNLcIHLxnn5L EOMyUUEfYwkpPSDnBKBiVZFgNEjwSMIbBOT6WRC3ONYnAKKmZS9VZhLuXCSmPPUiScrzPIGuEETpcy2J MPZuUFQpKIP9YuOqELGdRJKjYPbiGOCwCQVcBcwyGRPfCPNbJP0QOxAiHAImBNK4IXyaNTGgBMGplc6O VZCtMTQgJEutQKAgJGLlZMThJIlwMVUyVCY3IHK6EP FxKQPjRZ7SLdZfAPKqSTD1TLQcJDBgDCQwzp9BBTNrSGRgOwd2MDSwIZKbDTEzXBzxTEUwGFE3GzN7FF LwHGLuCX3AHbYwITHyORf3JWWdHDFlOBCest7CRNNgRMNpBXUaEIRuEERvVZCeCNkkKGHjZWX9ZMg1TW KoZNRmEB3HSwXjFHXbARarPCHhFXSoANRzgm7EXIGf ORMcPYP5DXMjWGTiSXRtENcnVTDwIJRwQJZ1DNUsCLCmTT9HMmCdLIRfAcLyYiRkUQMkYYOsun2IBBJl DWYeMJT2JvSyNRUdMTUrUBiyRVFyHRUdYlqfQVHiSTAbEJ6TLtMgYDLvBnC6SzanZIApIGEker9FVVGj LRFrVcz9QJAyYERhFGGfUGhbKMPqYGHwQVjmOCDzOH NcFE0CKmXrDGUoIkGqSRWeBWPvXLPtbn8OIGWfUOKuJAG5LFQsHKYwNAUuXEvmMYGwIIF4Lbk1XCKmOE ErNG4IFeSwWTRmFgN0GNFdNGYnIMYhar4QPFMnKFHiYSl8CLUrVQNuIDKmWJumPXFkZCU3VpWrXQQkUC UbPU7KVgSiQXCfLcJ9EnWwIKCbTSHady2HNWFtUOPf AdK5EYJdCHUxNIIsCJu9dbHtfCYoIWe7SQ3WV4KkjiDeBacSPv2Gq840BIY9KBQrVr1HE9wjNy1rPRZm SOUTLi3VFXw9GSHhVFtoTXN9YkkpJZQ5QVF8NvYnCLMqIGY4ZAZaU7W+JIn9GFFvHZTlNkfcJWAsFJK5 HhceSCGsRbP3GSXpYtH0ZP3gQVTOSj9+WOjcaYWwqWspBXMWAaO5PHA0SUlcYBLVNa3I ID Date Data Source [id number] 11/13/2019 09:29:52 PM EDT [facility] Name Value Range Interpretation Code Description Data Diane rce(s) Supporting Document(s) Progress Note [facility] JXLUDu3sGrOYKjSy90/OJOonDBExq8PwGMvmHNx1JZxlMGVcN1XhTFK8bW1pSBN2JXgSWwTaAlUbFKHl lbm [file] AgICAgICAgICAgICAgICAgICAgICAgICAgICAgICAgICAgICAgICAgICAgICAgICAgICAgICAgDQogIC AgICAgICAgICAgICAgICAgICAgICAgICAgICAgICAg ICAgICAgICAgICAgICAgICAgICAgICAgICAgICAgICAgICAgICAgICAgICAgICAgICAgICAgICAgICAg ICAgICAgDQogICAgICAgICAgICAgICAgICAgICAgICAgICAgICAgICAgICAgICAgICAgICAgICAgICAg ICAgICAgICAgICAgICAgICAgICAgICAgICAgICAgIC AgICAgICAgICAgICAgICAgDQogICAgICAgICAgICAgICAgICAgICAgICAgICAgICAgICAgICAgICAgIC AgICAgICAgICAgICAgICAgICAgICAgICAgICAgICAgICAgICAgICAgICAgICAgICAgICAgICAgICAgDQ ogICAgICAgICAgICAgICAgICAgICAgICAgICAgICAg ICAgICAgICAgICAgICAgICAgICAgICAgICAgICAgICAgICAgICAgICAgICAgICAgICAgICAgICAgICAg ICAgICAgICAgDQogICAgICAgICAgICAgICAgICAgICAgICAgICAgICAgICAgICAgICAgICAgICAgICAg ICAgICAgICAgICAgICAgICAgICAgICAgICAgICAgIC AgICAgICAgICAgICAgICAgICAgDQogICAgICAgICAgICAgICAgICAgICAgICAgICAgICAgICAgICAgIC AgICAgICAgICAgICAgICAgICAgICAgICAgICAgICAgICAgICAgICAgICAgICAgICAgICAgICAgICAgIC AgDQogICAgICAgICAgICAgICAgICAgICAgICAgICAg ICAgICAgICAgICAgICAgICAgICAgICAgICAgICAgICAgICAgICAgICAgICAgICAgICAgICAgICAgICAg ICAgICAgICAgICAgDQogICAgICAgICAgICAgICAgICAgICAgICAgICAgICAgICAgICAgICAgICAgICAg ICAgICAgICAgICAgICAgICAgICAgICAgICAgICAgIC AgICAgICAgICAgICAgICAgICAgICAgDQogICAgICAgICAgICAgICAgICAgICAgICAgICAgICAgICAgIC AgICAgICAgICAgICAgICAgICAgICAgICAgICAgICAgICAgICAgICAgICAgICAgICAgICAgICAgICAgIC SaWCVeHVs3O6akXWUzWPXeZK6fGKu2Fz7+DQoNCmVu ARA7akJmcY5SSH9au0AwYCtgCHApy3GqSMx4WL3KDXDsGEdoWF4IHSggzr0NYWEsMPFzeYNVi3yhIeGq ZEI9MFJgIlbxOL8NUEIfI0wxbeThRZDjSXJNOCthEAOJOQ4SYbGwQ6CpsL06DBWSQj5+DQplbmRvYmoN PaV8SEVfa1EdEEf0FD2HLULoDatuo3SyDqEuATLCSW rqJV4TVZJ7LKN4WEIfXu7TDXQjS781qgUqGD8WHm4RUkOyQN2rds0OWlTzNDVnOnxAYmw4PXqdCZ7YhX LfWVrYez5glwXwhgWYp9BwufCvlPVBkTAucsKjHHYXJAEqrKwaTJEjTPUsFH8cVN9wGATfOGJuBgHaCK LOAM7MBYCbUYUuuMAwETUfORCDAP8QMSsgIKV1CBNk xeEdkHYkZCksNC8PWSLtjaSnMsAbZQPFCGi+Do7KBI1ut9SwOUulYqZvKR6doh4JOMrCJrSkI0T1vFRl S1O5KOyeEp5KMAJxVHAzAxAfTJJSFPisFH3NYO9lqfL9NC0TzTOdIGDaLFNhvMVrJLd7E92ayCHxMMmd MM2VKQH+Reuben+Yd9ULATvBIVlWUFkMfNmFIXFAvFkU7 SyB3XKy0VsA7ZcDF52jEzarbFeUMwtTL0CTT8uFFVbKWUIIH2YbCLvzH9ahbZhIRBlCBQXAlUzB06cuS GjALBfTWUmJIJsPa6JHMAqL2MjddCyxHxuqvFqOVYrALVLGC5CURxmdnLiePAzbWvcVN47gHerDC3YUk 2JOrChSH2jrx6CxIKzMi6OTZYjHt3SZAQxWHEpNNOj AKG1ZNFcJrGgNJirEQWmQOJhYGS3HALkAJPpCP7XMdWpWOOvUmWkVTbeEJBmWTXioo4FHECcRKXcWvj7 OIBbFSLhRVYtQUmkLKZcGLHcMEG4OMMqSZGiIH4JCjJaULMzRFLpNiuxKHByKKVobd6XNTAdFMCyCEN9 WaSuCULvMJXjUWbwJOUaAMD3HhVaHCOeVCTiCF4WVx EtNCShCGE8IgYzEGDhKZKfso1QYHXbVCZbHxa9AtYtMMBnPFYaMVkhXPLeAXB0VXz2GIIcZVOsME9MNv KfMVReVHbeHvKdBRIxFGKpmd4HGTEeSWYyCRVlCPEhBJMvELIqNQyvMLFfNDU8ESLzGZZpOVPaGG9RBe ThEQXjPQd8PQnkNNOwFNXgei6FTTMrHBCgQLq4KEIh JQMyAYDgUWucRARsKCOwGorbEOAfROUkNL9QMwPuWNEeGmE1URslZSSxNPDphc5RYSKqAMWsJItkYOQc IQTwEAGzZSwrUHZnLNTwJFl1PBDoCCNrZA6JKfMoUTSdSjR7RmawRUYdVRZdcm5IORGaTUFbIgGuRCJn BUYjSULgCYliDAJrWQQgVLw9KXKbMFEpGH4VGwNqWM JlUxQ8ZCMzEVXdOIJtgh4EASBnJIDqXWO8SJEpIQUkWNKfIHfdCMArIBE4ZJX3JGGkJPStXA6VCtRcUF HxScUbDgbpURVmXPXsbk6FoPEevZioxh5TPWlKTu5ZbDhzZRS0MYqcQn1veQEmIjBpAFWYJp9MedBeYR NtGYAPSGluABFxKEJbMqteYXTqCfz0YyEiHYN8Lfn1 V3WjRfb4ZxS0BRKvCaS1IDHcTSE9VjNaDKqfTUAxHNh9AVTxVXH7EBp6XcAvXZB+NB0fWEb+We7Pc1Wk trR3meMqGUprZELlZz6ZEAXJZ4AUFq== ID Date Data Source [id number] 07/24/2019 01:38:15 PM [facility] Name Value Range Interpretation Code Description Data Diane rce(s) Supporting Document(s) Progress Note [facility] QHULQr4zEhDALgOj99/XKQdnWQRmo8BoHZiuKYw9PIqrVBLxZ5NnGAD0dV9oJPC8BRaWGbHeCnVoEIXr lbm [file] ZvWOyBUjCaGI6VQMh= ID Date Data Source [id number] 07/21/2019 05:17:58 PM [facility] Name Value Range Interpretation Code Description Data Diane rce(s) Supporting Document(s) Color of Urine [facility] Clarity of Urine [facility] Specific gravity of Urine by Refractometry automated 1.020 1.003 -1.030 [facility] pH of Urine by Automated test strip 5.0 5.0-8.0 [facility] Protein [Mass/volume] in Urine by Automated test strip Neg [facility] Glucose [Mass/volume] in Urine by Automated test strip Neg [facility] Ketones [Mass/volume] in Urine by Automated test strip Neg [facility] Bilirubin.total [Presence] in Urine by Automated test strip Negative [facility] Hemoglobin [Presence] in Urine by Automated test strip Neg [facility] Leukocyte esterase [Presence] in Urine by Automated test strip Negative [facility] Nitrite [Presence] in Urine by Automated test strip Negati [facility] Leukocytes [#/area] in Urine sediment by Automated count 2 /HPF 0 -5 [facility] Erythrocytes [#/area] in Urine sediment by Automated count 3 /HPF 0-3 [facility] Epithelial cells.squamous [#/area] in Urine sediment by Auto mated count 16 /HPF None [facility] Mucus [#/area] in Urine sediment by Microscopy low power field None [facility] ID Date Data Source [id number] 07/21/2019 07:00:44 PM [facility] Name Value Range Interpretation Code Description Data Diane rce(s) Supporting Document(s) Protein [Mass/volume] in Urine 13 mg/dl [facility] Creatinine [Mass/volume] in Urine 210.8 mg/dL [facility] Protein/Creatinine [Mass Ratio] in Urine 0.06 mg/mg{creat} [facility] ID Date Data Source [id number] 07/21/2019 05:32:30 PM EST [facility] Name Value Range Interpretation Code Description Data Diane rce(s) Supporting Document(s) Albumin [Mass/volume] in Serum or Plasma by Bromocresol green (BCG) dye binding method 4.1 g/dL 3.5[facility].2 [facility] Sodium [Moles/volume] in Serum or Plasma 135 mmol/L 136-145 L [facility] Potassium [Moles/volume] in Serum or Plasma 4.4 mmol/L 3.4-5.1 [facility] Chloride [Moles/volume] in Serum or Plasma 99 mmol/L 98-107 [facility] Bicarbonate [Moles/volume] in Serum 24 mmol/L 22-29 [facility] Glucose [Mass/volume] in Serum or Plasma 71 mg/dL 70-140 [facility] Urea nitrogen [Mass/volume] in Serum or Plasma 20 mg/dL 6-20 [facility] Creatinine [Mass/volume] in Serum or Plasma 1.74 mg/dL 0.50-0.90 H [facility] Calcium [Mass/volume] in Serum or Plasma 9.3 mg/dL 8.6-10.0 [facility] Phosphate [Mass/volume] in Serum or Plasma 4.7 mg/dL 2.5-4.5 H [facility] Glomerular filtration rate/1.73 sq M pre dicted among non-blacks [Volume Rate/Area] in Serum or Plasma by Creatinine-based formula (MDRD) 39 mL/min/1.73m2 >60 L [facility] Glomerular filtration rate/1.73 sq M pre dicted among blacks [Volume Rate/Area] in Serum or Plasma by Creatinine-based formula (MDRD) 45 mL/min/1.73m2 >60 L [facility] Procedure Social History Code Duration Value Status Description Data Source(s ) Alcohol intake 09/01/2020 12:00:00 AM EST Current non-d florencio of alcohol (finding) completed Current non-drinker of alcohol (finding) [facility] Tobacco use and exposure 09/01/2020 12:00:00 AM EST Never used co mpleted Never used [facility] Smoking 09/01/2020 12:00:00 AM EST Never smoker completed Never s moker [facility] Alcohol intake 03/09/2020 12:00:00 AM EDT Current non-d florencio of alcohol (finding) completed Current non-drinker of alcohol (finding) [facility] Alcohol intake 11/11/2019 12:00:00 AM EDT Current non-d florencio of alcohol (finding) completed Current non-drinker of alcohol (finding) [facility] Smoking 11/11/2019 12:00:00 AM EDT Never smoker completed Never s [facility] Alcohol intake 07/21/2019 12:00:00 AM EST Current non-d florencio of alcohol (finding) completed Current non-drinker of alcohol (finding) [facility] Smoking 07/21/2019 12:00:00 AM EST Never smoker completed Never s [facility] Vital Signs ID Date Data Source UNK Name Value Range Interpretation Code Description Data Source(s) Body surface area Derived from formula 1.56 m2 1.56 m2 [facility] ([facility]) Body weight 54.432 kg 54.432 kg [facility] ([facility]) [place] body weight 115 [lb_av] 115 [lb_av] [facility] ([facility]) Body mass index (BMI) [Ratio] 21.3 kg/m2 21.3 k g/m2 [facility] ([facility]) Body weight 120.00 [lb_av] 120.00 [lb_av] [facility] ([facility]) reported Body height 63 [in_i] 63 [in_i] [facility] ([facility]) 5'3" Body temperature 99.1 [degF] 99.1 [degF] [facility] ([facility]) Respiratory rate 14 /min 14 /min [facility] ( [facility]) Heart rate 84 /min 84 /min [facility] ([facility]) Diastolic blood pressure 82 mm[Hg] 82 mm[Hg] [facility] ([facility]) Systolic blood pressure 138 mm[Hg] 138 mm[Hg] [facility]) Body surface area Derived from formula 1.60 m2 1.60 m2 [facility] ([facility]) Body weight 58.231 kg 58.231 kg [facility] ([facility]) [place] body weight 115 [lb_av] 115 [lb_av] [facility] ([facility]) Body mass index (BMI) [Ratio] 22.7 kg/m2 22.7 k g/m2 [facility] ([facility]) Body weight 128.38 [lb_av] 128.38 [lb_av] [facility] Body height 63 [in_i] 63 [in_i] [facility] ([facility]) 5'3" Oxygen saturation in Arterial blood by Pulse oximetry 98 % 98 % [facility] ([facility]) Heart rate 72 /min 72 /min [facility] ([facility]) Diastolic blood pressure 66 mm[Hg] 66 mm[Hg] [facility] ([facility]) Systolic blood pressure 108 mm[Hg] 108 mm[Hg] [facility] ([facility]) Body surface area Derived from formula 1.63 m2 1.63 m2 [facility] ([facility]) Body weight 60.556 kg 60.556 kg [facility] ([facility]) [place] body weight 115 [lb_av] 115 [lb_av] [facility] ([facility]) Body mass index (BMI) [Ratio] 23.6 kg/m2 23.6 k g/m2 [facility] ([facility]) Body weight 133.50 [lb_av] 133.50 [lb_av] [facility] Body height 63 [in_i] 63 [in_i] [facility] ([facility]) 5'3" Body temperature 97.9 [degF] 97.9 [degF] [facility] ([facility]) Respiratory rate 16 /min 16 /min [facility] ( [facility]) Heart rate 80 /min 80 /min [facility] ([facility]) Diastolic blood pressure 74 mm[Hg] 74 mm[Hg] [facility] ([facility]) Systolic blood pressure 122 mm[Hg] 122 mm[Hg] [facility] ([facility]) Body surface area Derived from formula 1.64 m2 1.64 m2 [facility] ([facility]) Body weight 61.236 kg 61.236 kg [facility] ([facility]) [place] body weight 115 [lb_av] 115 [lb_av] [facility] ([facility]) Body mass index (BMI) [Ratio] 23.9 kg/m2 23.9 k g/m2 [facility] ([facility]) Body weight 135.00 [lb_av] 135.00 [lb_av] [facility] ([facility]) Body height 63 [in_i] 63 [in_i] [facility] ([facility]) 5'3" Body temperature 98.0 [degF] 98.0 [degF] [facility] ([facility]) Respiratory rate 16 /min 16 /min [facility] ( [facility]) Heart rate 68 /min 68 /min [facility] ([facility]) Diastolic blood pressure 74 mm[Hg] 74 mm[Hg] [facility] Systolic blood pressure 118 mm[Hg] 118 mm[Hg] [facility] ID Date Data Source [id number] 09/01/2020 03:11:24 PM [facility] Name Value Range Interpretation Code Description Data Source(s) WEIGHT RECORDED 126.2 lb 126.2 lb [facility] Body height Measured 62.[address] [facility] Patient Treatment Plan of Care Planned Activity Planned Date Details Description Data Source (s) Albuterol Sulfate HFA 108 (90 Base) MCG/ ACT Inhalation Aerosol Solution (PROVENTIL HFA) 08/31/2020 12:00:[address] [facility] thyroid (RETIREMENT) 90 MG Oral Tablet [[place] Thyroid] 08/21/2020 12:00:0 0 AM [facility] Albuterol Sulfate HFA 108 (90 Base) MCG/ ACT Inhalation Aerosol Solution (PROVENTIL HFA) [facility] Delayed Release Oral Tablet 05/01/2 019 12:00:00 AM EDT [facility] Levothyroxine Sodium 0.15 MG Oral Tablet [Synthroid] 019 12:00:00 AM [facility] Sulfamethoxazole 800 MG / Trimethoprim 160 MG Oral Tab let 06/24/2018 12:00:00 AM [facility] ospital
[2020-09-05 17:47] LABS: ALBUMIN 3.7 GM/DL (3.2-5.2); ALT/SGPT 26 U/L (12-78); BILIRUBIN,DIRECT < 0.1 MG/DL (0.0-0.2); BILIRUBIN,TOTAL 0.2 MG/DL (0.2-1.0); LIPASE 187 U/L (73-393); TOTAL PROTEIN 7.1 GM/DL (6.4-8.2)
--- NOTE | 2020-09-05 18:29 | REPVR ---
PROCEDURE INFORMATION: Exam: US Nonobstetric Pelvis; Complete Exam date and time: 09/05/2020 6:14 PM Age: 30 years old Clinical indication: Pelvic pain; Additional info: Right lower quadrant pain TECHNIQUE: Imaging protocol: Transabdominal pelvic nonobstetric ultrasound. Complete exam. Real time ultrasound with image documentation. COMPARISON: CT ABD/PEL W/PO CONTRAST ONLY 09/23/2019 10:08 PM FINDINGS: Uterus/cervix: Uterus measures 8.1 x 3.8 x 4.5 cm. Endometrial echo complex measures 4 mm. Normal echotexture of the myometrium. Right adnexa: Right ovary measures 4.5 x 2.2 x 2.9 cm. 1.8 x 1.4 x 1.7 cm hypoechoic complex structure within the right ovary with minimal hypervascularity peripherally demonstrated. Left adnexa: Left ovary measures 4.1 x 1.8 x 2.8 cm. Intraperitoneal space: No intraperitoneal fluid. Urinary bladder: Normal. IMPRESSION: 1. 1.8 x 1.4 x 1.7 cm hypoechoic complex structure within the right ovary with minimal hypervascularity peripherally demonstrated. Finding most likely represents a hemorrhagic cyst. Follow-up not needed. 2. Otherwise unremarkable. Electronically signed by: Zac Kevin On 09/05/2020 18:30:02 PM
[2020-09-05 19:07] LABS: CHLAMYDIA DNA AMPLIFICATION NEGATIVE (NEGATIVE); GC DNA AMPLIFICATION NEGATIVE (NEGATIVE)
[2020-09-05 19:08] VITALS: BP 128/84
[2020-09-05] MEDS ORDERED: METR-265 PO (19:40)
== END 2020-09-05 19:12 | disposition home or self-care (01) ==
LOC: M ED 16:51
DX: N76.0 Acute vaginitis (principal); N83.291 Other ovarian cyst, right side; N92.6 Irregular menstruation, unspecified; D86.9 Sarcoidosis, unspecified; N18.30 Chronic kidney disease, stage 3 unspecified; Z87.448 Personal history of other diseases of urinary system; Z79.899 Other long term (current) drug therapy; Z88.5 Allergy status to narcotic agent